=== PATIENT | male | born 1965 | race Caucasian/White ===

== ENCOUNTER 2022-04-28 00:24 | Emergency (ER) | payer MEDICAID, SELFPAY ==
[2022-04-28 00:49] VITALS: BP 146/95; PULSE 80; RESP 18; TEMP 36.6; O2SAT 97
--- NOTE | 2022-04-28 00:49 | W.ED.GENADLT ---
HPI - General Adult General: Chief complaint: Skin/Abscess/Foreign Body Stated complaint: INFECTED SORES Time Seen by Provider: 04/28/22 00:27 Source: patient and EMS Mode of arrival: EMS Limitations: no limitations History of Present Illness: 56-year-old male who states that 2 months ago he is having cough and congestion he states that he had taken a Z-Lalito and steroids with little help and then states he started to smoke meth which actually helped his cough. He states he has been using some meth and he is developed some sores. He states that he has sores on his left arm and he has a large wound to his left lower leg that appears to be an abscess that been draining. He states his cough improved he denies any fevers but he is concerned that he has gotten infections to his skin. Denies any worsening improving factors is not seeing anyone for this. Associated symptoms: Deny chest pain, dyspnea, headache(s), nausea, rash or vomiting Review of Systems Const: Denies: fever(s), chills, body aches or change in appetite Eyes: Denies: blurry vision or eye discomfort ENMT: Denies: throat pain or dental pain Card: Denies: chest pain Resp: Denies: dyspnea GI: Denies: abdominal pain, nausea, vomiting or diarrhea : Denies: dysuria Musc: Denies: neck pain or back pain Skin/Breast: Reports: sores; Denies: rash Neuro: Denies: headache(s) Psych: Denies: depression Segundo/Lymph: Denies: easy bruising All/Imm: Denies: urticaria PFS ED PFSH: Medical History (Updated 04/28/22 @ 01:27 by Brittni Capone MD) No pertinent past medical history Social History (Updated 04/28/22 @ 00:50 by Brittni Capone MD) Substance/Drug Use: current Physical Exam Const: COMMON NORMALS: no acute distress, patient oriented x3 and healthy appearing HENMT: COMMON NORMALS: normocephalic and atraumatic HEAD & SCALP: normocephalic and atraumatic Eye: COMMON NORMALS: Equal, round and reactive pupils present and EOMs intact bilaterally PUPIL: Yes Equal, round and reactive pupils present Neck/C-Spine: COMMON NORMALS: full ROM and supple Chest: COMMONS NORMALS: normal inspection of the chest and normal palpation of entire chest wall Resp: COMMON NORMALS: normal respiratory effort, No retractions, No use of accessory muscles and clear to auscultation bilaterally AUSCULTATION: clear to auscultation bilaterally Cardio: COMMON NORMALS: regular rate, regular rhythm and No murmurs present (Cardio) RATE: regular rate RHYTHM: regular rhythm GI: COMMON NORMALS: Normal to inspection, nondistended, normoactive bowel sounds present, Soft to palpation, non-tender and no masses PALPATION: Yes Soft to palpation Extremity: COMMON NORMALS: full ROM Neuro: COMMON NORMALS: patient oriented x3, moves all extremities and no focal motor deficits Psych: COMMON NORMALS: mental status grossly normal, Normal thought process present and cooperative THOUGHT PROCESS: Normal thought process present Skin: NARRATIVE SKIN EXAM: Multiple small open sores no signs of severe cellulitis or drainable abscesses he does have an abscess to his left lower leg and is roughly 3 cm and fluctuant. Patient has a 1 cm abscess to his left upper thigh and to his right shoulder as well that are fluctuant Procedures Abscess I/D Site: other (left lower leg, left upper leg and right shoulder) Local Anesthetic: lidocaine 1% Amount of anesthesia used (mL): 20 Technique: incised with #11 blade Packing used?: none Course Vital Signs: Vital signs: Vital Signs Temperature 97.9 F 04/28/22 00:49 Pulse Rate 80 04/28/22 00:49 Respiratory Rate 18 04/28/22 00:49 Blood Pressure 146/95 04/28/22 00:49 Pulse Oximetry 97 04/28/22 00:49 MDM - General Adult Medical Decision Making Patient presents here with multiple abscesses 3 that I did incise and drain we will place him on Bactrim he is well-appearing here he stable for discharge he is to follow-up with PCP and return if worsening. Discharge Plan Discharge Patient Disposition: Home Clinical Impression: Abscess Prescriptions: New Bactrim DS 800-160 mg tablet 1 tab PO BID 10 Days Qty: 20 0RF Naprosyn 500 mg tablet 500 mg PO BID PRN (Reason: pain) Qty: 20 0RF No Action azithromycin 250 mg tablet See Rx Instructions PO .COMPLEX Qty: 6 0RF Rx Instructions: take 500 mg today (day 1), then 250 mg for 4 days (days 2-5) PO methylprednisolone [Medrol (Lalito)] 4 mg tablets,dose pack See Rx Instructions PO PER PKG DIR Qty: 21 0RF Rx Instructions: PO PER PKG DIR Discharge Orders: Discharge ED (Routine); Ordered 04/28/22 Ordered By: Brittni Capone Discharge Diet: Advance as tolerated Discharge Activity: Resume usual activity Patient Instructions: Abscess (ED) Coding Level of Care Code ED Child Care Specialist for Chg Fwd Exam Comprehensive
[2022-04-28] MEDS: HYDROcodone-acetaminophen 5-325 mg Tablet 1 TAB PO (01:29)
[2022-04-28] MEDS: sulfamethoxazole-trimeth DS 160-800 mg Tablet 1 TAB PO (01:29)
[2022-04-28 01:41] VITALS: BP 146/95; PULSE 80; RESP 18; TEMP 36.6; O2SAT 97
== END 2022-04-28 01:42 | disposition home or self-care (01) ==
PROVIDERS: Emergency Provider Emergency Medicine
DX: L02.416 Cutaneous abscess of left lower limb (principal); L02.413 Cutaneous abscess of right upper limb
CPT/HCPCS: 10061; 99283

== ENCOUNTER 2022-06-22 17:47 | Inpatient (IN) | payer MEDICAID, SELFPAY ==
[2022-06-22] VITALS (9 sets, daily range): BP systolic 98–130; BP diastolic 70–90; PULSE 88–112; RESP 16–18; TEMP 36.6–36.7; O2SAT 92–100; BMI 16.9
--- NOTE | 2022-06-22 17:57 | XRR_ITS ---
PROCEDURE INFORMATION: Exam: XR Chest Exam date and time: 06/22/2022 6:03 PM Age: 56 years old Clinical indication: Other: AMS TECHNIQUE: Imaging protocol: Radiologic exam of the chest. Views: 1 view. COMPARISON: No relevant prior studies available. FINDINGS: Lungs: Small density in the right mid lung is most likely in the right upper lobe, abutting the minor fissure. The lungs are otherwise clear. Pleural spaces: Unremarkable. No pleural effusion. No pneumothorax. Heart/Mediastinum: Unremarkable. No cardiomegaly. Bones/joints: Unremarkable. XR/XR chest 1V portable [id number] IMPRESSION: Small focus of atelectasis or possible pneumonia in the right mid lung.
--- NOTE | 2022-06-22 17:57 | CTR_ITS ---
PROCEDURE INFORMATION: Exam: CT Head Without Contrast Exam date and time: 06/22/2022 6:08 PM Age: 56 years old Clinical indication: Altered mental status/memory loss; Patient HX: AMS. Patient non verbal except when grunting. Unable to obtain further history. TECHNIQUE: Imaging protocol: Computed tomography of the head without contrast. Radiation optimization: All CT scans at this facility use at least one of these dose optimization techniques: automated exposure control; mA and/or kV adjustment per patient size (includes targeted exams where dose is matched to clinical indication); or iterative reconstruction. COMPARISON: No relevant prior studies available. RADIATION DOSE METRICS: Total DLP (mGy-cm): 647.88 FINDINGS: Brain: Mild cortical volume loss. Mild hypodensities in supratentorial periventricular and subcortical white matter, consistent with microangiopathy. No intracranial hemorrhage. Cerebral ventricles: No ventriculomegaly. Paranasal sinuses: Visualized sinuses are unremarkable. No fluid levels. Mastoid air cells: Small right mastoid effusion. The left mastoid is clear. Bones/joints: Unremarkable. No acute fracture. Soft tissues: Unremarkable. Vasculature: No hyperdense artery. CT/CT head wo con* [id number] IMPRESSION: No acute intracranial abnormality.
--- NOTE | 2022-06-22 17:58 | ECG_ITS ---
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 Measurements Intervals [place] Rate: 90 P: 78 [place]: 153 QRS: 84 QRSD: 98 T: 59 QT: 324 QTc: 397 Interpretive Statements SINUS RHYTHM RIGHT ATRIAL ENLARGEMENT [0.3mV P-WAVE] No previous ECG available for comparison Electronically Signed On 06-23-2022 17:35:10 CDT by Yahaira Lobato M.D. [id number]
--- NOTE | 2022-06-22 18:10 | CTR_ITS ---
PROCEDURE INFORMATION: Exam: CT Chest Without Contrast; Diagnostic Exam date and time: 06/22/2022 6:12 PM Age: 56 years old Clinical indication: Patient HX: AMS. Abnormal cxr. Patient non verbal except when grunting. Unable to obtain further history. ; Additional info: Mass TECHNIQUE: Imaging protocol: Diagnostic computed tomography of the chest without contrast. Radiation optimization: All CT scans at this facility use at least one of these dose optimization techniques: automated exposure control; mA and/or kV adjustment per patient size (includes targeted exams where dose is matched to clinical indication); or iterative reconstruction. COMPARISON: CR (CHEST, ) 06/22/2022 6:03 PM RADIATION DOSE METRICS: Total DLP (mGy-cm): 678.23 FINDINGS: Lungs: Severe centrilobular emphysema. 2.8 cm irregular nodule in the superior segment of the right lower lobe. Multiple adjacent nodules in the superomedial right lower lobe measuring 2.0 cm, 0.9 cm, 1.2 cm, and 0.8 cm. 0.8 cm cavitary nodule in the right lower lobe. 2.8 x 3.0 x 7.3 cm oval masslike consolidation in the anterior right lower lobe, abutting the major fissure, extending from the peripheral pleura to the hilum. Mild patchy peripheral ground-glass opacities in the left lower lobe and lingula. Pleural spaces: No pleural effusion. No pneumothorax. Heart: No coronary artery calcifications. The heart size is normal. Lymph nodes: Unremarkable. No enlarged lymph nodes. Vasculature: Unremarkable. No aortic aneurysm. Bones/joints: Unremarkable. No acute fracture. Soft tissues: Unremarkable. PET/CT, or tissue sampling.(Reference: Nakul) 2. Masslike subpleural consolidation in the anterior right lower lobe with extension to the hilum. This is suspicious for an underlying neoplastic process, given the other findings. 3. Ground-glass opacities in the left lung are suspicious for pneumonia. References: Nakul Georges et al. Guidelines for Management of Incidental Pulmonary Nodules Detected on CT Images: From the Fleischner Society 2017. Radiology. 2017;284(1):228-243. PROCEDURE INFORMATION: Exam: CT Abdomen And Pelvis Without Contrast Exam date and time: 06/22/2022 6:12 PM Age: 56 years old Clinical indication: Patient HX: AMS. Abnormal cxr. Patient non verbal except when grunting. Unable to obtain further history. ; Additional info: Mass TECHNIQUE: Imaging protocol: Computed tomography of the abdomen and pelvis without contrast. Radiation optimization: All CT scans at this facility use at least one of these dose optimization techniques: automated exposure control; mA and/or kV adjustment per patient size (includes targeted exams where dose is matched to clinical indication); or iterative reconstruction. COMPARISON: CR (CHEST, ) 06/22/2022 6:03 PM RADIATION DOSE METRICS: Total DLP (mGy-cm): 678.23 FINDINGS: Liver: Normal. No mass. Gallbladder and bile ducts: Normal. No calcified stones. No ductal dilation. Pancreas: Normal. No ductal dilation. Spleen: Normal. No splenomegaly. Adrenal glands: Normal. No mass. Kidneys and ureters: Mild bilateral hydronephrosis with columning of the ureters to the urinary bladder. No visible ureteral calculus. Multiple small bilateral nonobstructing renal calculi measuring up to 3 mm. Stomach and bowel: Moderate stool in the proximal and transverse colon. The descending and distal colon are decompressed with scattered gas. Stool in the rectum. No small bowel obstruction. Fluid-filled stomach. No wall thickening. Appendix: No evidence of appendicitis. Intraperitoneal space: Unremarkable. No free air. No significant fluid collection. Retroperitoneal space: Multiple surgical clips in the retroperitoneum and pelvis. Vasculature: Arterial calcifications. No aneurysm. Lymph nodes: Unremarkable. No enlarged lymph nodes. Urinary bladder: Distended urinary bladder measuring 17.0 cm in length. Large 8.6 cm lamellated calcified stone in the inferior urinary bladder. Multiple additional smaller urinary bladder stones inferiorly, measuring up to 2.7 cm. No visible bladder wall thickening. Reproductive: The prostate is not visualized and may be absent or small in size. Bones/joints: Unremarkable. No acute fracture. Soft tissues: Unremarkable. CT/[place] [id number] IMPRESSION: 1. Multiple suspicious irregular nodules in the right lower lobe, the largest measuring 2.8 cm. Highly suspicious nodule(s). Consider non-emergent IMPRESSION: 1. Multiple urinary bladder calculi, the largest measuring 8.6 cm. 2. Distended urinary bladder with no visible wall thickening. This likely represents chronic urinary bladder outlet obstruction. 3. Mild bilateral hydronephrosis is most likely related to the distended urinary bladder. 4. Small bilateral renal calculi.
--- NOTE | 2022-06-22 18:10 | W.ED.AMS ---
HPI - Altered Mental Status General: Chief Complaint: Altered Mental Status Stated Complaint: AMS/ PINPOINT PUPILS Time Seen by Provider: 06/22/22 17:57 Source: EMS Mode of arrival: EMS Limitations: altered mental status History of Present Illness: 56-year-old male who is here with EMS for altered mental status. Per EMS patient's been altered no history available from him and states that family at scene was not very good historians either they told him that he had been altered for a month which being much worse today unknown if patient has a history of drug abuse EMS states when they arrived his pupils were pinpoint and gave him Narcan he became more responsive this patient still severely altered not able to make any words or follow any commands he is very cachectic appearing. No known fever. Review of Systems General: Reports: ROS unobtainable due to mental status PFSH ED PFSH: Medical History (Updated 06/22/22 @ 22:38 by Brittni Capone MD) Bladder cancer 2017 CKD (chronic kidney disease) Falls Macrocytosis Metabolic acidemia No pertinent past medical history SBO (small bowel obstruction) Surgical History (Updated 06/22/22 @ 22:35 by Haroon Peterson MD) H/O partial cystectomy Social History (Updated 06/22/22 @ 18:11 by Brittni Capone MD) Substance/Drug Use: unknown Physical Exam Const: COMMON NORMALS: negative for patient oriented x3 GENERAL APPEARANCE: ill appearing and frail appearing HENMT: COMMON NORMALS: normocephalic and atraumatic HEAD & SCALP: normocephalic and atraumatic OTHER: oral mucous dry Eye: COMMON NORMALS: Equal, round and reactive pupils present and conjunctivae normal CONJUNCTIVA: Yes conjunctivae normal PUPIL: Yes Equal, round and reactive pupils present Neck/C-Spine: COMMON NORMALS: full ROM and supple Chest: COMMONS NORMALS: normal inspection of the chest and normal palpation of entire chest wall Resp: COMMON NORMALS: normal respiratory effort and clear to auscultation bilaterally AUSCULTATION: clear to auscultation bilaterally Cardio: COMMON NORMALS: regular rate and regular rhythm RATE: regular rate RHYTHM: regular rhythm GI: COMMON NORMALS: Normal to inspection, nondistended, normoactive bowel sounds present, Soft to palpation and non-tender PALPATION: Yes Soft to palpation Back/Pelvis: COMMON NORMALS: thoracic and lumbar spine normal to inspection Extremity: COMMON NORMALS: normal to inspection Neuro: COMMON NORMALS: negative for patient oriented x3 Psych: COMMON NORMALS: negative for mental status grossly normal Skin: COMMON NORMALS: no rashes or lesions noted GENERAL SKIN EXAM: no rashes or lesions noted Course Vital Signs: Vital signs: Vital Signs Temperature 97.9 F 06/22/22 18:06 Pulse Rate 112 H 06/22/22 18:06 Respiratory Rate 16 06/22/22 18:06 Blood Pressure 130/89 06/22/22 18:06 Pulse Oximetry 99 06/22/22 18:06 Oxygen Delivery Me thod 06/22/22 18:06 MDM - Altered Mental Status Medical Decision Making Patient presents with altered mental status he is found to be acidotic with acute kidney injury he appears to have a lung mass along with a pneumonia. Lactate here is minimally elevated patient started on IV fluids along with IV antibiotics he has became a little more awake but still is quite altered. Spoke to hospital admit to ICU. Lab Data : 06/22/22 18:45 06/22/22 18:45 Radiology Impressions Chest X-Ray 06/22/22 17:57 IMPRESSION: Small focus of atelectasis or possible pneumonia in the right mid lung. Head CT 06/22/22 17:57 IMPRESSION: No acute intracranial abnormality. Chest/Abdomen/Pelvis CT 06/22/22 18:10 IMPRESSION: 1. Multiple suspicious irregular nodules in the right lower lobe, the largest measuring 2.8 cm. Highly suspicious nodule(s). Consider non-emergent IMPRESSION: 1. Multiple urinary bladder calculi, the largest measuring 8.6 cm. 2. Distended urinary bladder with no visible wall thickening. This likely represents chronic urinary bladder outlet obstruction. 3. Mild bilateral hydronephrosis is most likely related to the distended urinary bladder. 4. Small bilateral renal calculi. Laboratory Results WBC 41.6 10^3/uL (4.0-10.0) H* 06/22/22 18:45 RBC 5.22 10^6/uL (4.1-5.3) 06/22/22 18:45 Hgb 17.1 g/dL (11.7-16.6) H 06/22/22 18:45 Hct 53.9 % (42.0-52.0) H 06/22/22 18:45 MCV 103.3 fl (80-94) H 06/22/22 18:45 MCH 32.8 pg (28.0-34.0) 06/22/22 18:45 MCHC 31.7 g/dL (30.0-36.0) 06/22/22 18:45 RDW 14.2 % (12.1-15.1) 06/22/22 18:45 Plt Count 452 10^3/cmm (130-400) H 06/22/22 18:45 MPV 10.1 fL (7.4-10.4) 06/22/22 18:45 Neut % (Auto) 89.5 % 06/22/22 18:45 Lymph % (Auto) 2.5 % 06/22/22 18:45 Navarro % (Auto) 5.0 % 06/22/22 18:45 Eos % (Auto) 0.0 % 06/22/22 18:45 Baso % (Auto) 0.3 % 06/22/22 18:45 Neut # (Auto) 37.29 10^3/uL (1.8-7.7) H 06/22/22 18:45 Lymph # (Auto) 1.0 10^3/uL (0.8-4.8) 06/22/22 18:45 Navarro # (Auto) 2.1 10^3/uL (0.2-0.9) H 06/22/22 18:45 Eos # (Auto) 0.0 10^3/uL (0.0-0.8) 06/22/22 18:45 Baso # (Auto) 0.1 10^3/uL (0.0-0.1) 06/22/22 18:45 Nucleated RBC % (auto) 0 % 06/22/22 18:45 Nucleated RBCs # 0.0 /100WBC 06/22/22 18:45 PT 15.30 SECONDS (12.1-14.9) H 06/22/22 18:45 INR 1.17 (0.8-1.2) 06/22/22 18:45 Specimen Type Arterial 06/22/22 18:52 Sample Site Radial, left 06/22/22 18:52 ABG pH 7.01 (7.35-7.45) L* 06/22/22 18:52 ABG pCO2 11.4 mmHg (35-45) L* 06/22/22 18:52 ABG pO2 127.0 mmHg (80.0-100.0) H 06/22/22 18:52 ABG HCO3 2.9 mmol/L (22-26) L 06/22/22 18:52 ABG Base Excess -26.2 mmol/L (-2.0-2.0) L 06/22/22 18:52 Harvinder Test Pos 06/22/22 18:52 Hematocrit 51.4 % (42-52) 06/22/22 18:52 O2 Delivery Device Room air 06/22/22 18:52 FiO2 21.0 % 06/22/22 18:52 Technical Support Intern ID Eds 06/22/22 18:52 Sodium 137 mmol/L (136-145) 06/22/22 18:45 Potassium 4.6 mmol/L (3.5-5.1) 06/22/22 18:45 Chloride 119 mmol/L (98-107) H 06/22/22 18:45 Carbon Dioxide 7 mmol/L (22-29) L* 06/22/22 18:45 Anion Gap 15.6 (5-19) 06/22/22 18:45 BUN 146 mg/dL (6-20) H* 06/22/22 18:45 Creatinine 6.6 mg/dL (0.7-1.2) H* 06/22/22 18:45 GFR Calculation 8.8 mL/min (90-130) L 06/22/22 18:45 Glucose 110 mg/dL (65-115) 06/22/22 18:45 POC Glucose 109 mg/dL (70-110) 06/22/22 18:35 Calculated Osmolality 332 mOsm/kg (285-295) H 06/22/22 18:45 Lactate 2.9 mmol/L (0.5-2.2) H 06/22/22 18:45 Calcium 11.3 mg/dL (8.5-10.5) H 06/22/22 18:45 Magnesium 3.1 mg/dL (1.7-2.3) H 06/22/22 18:45 Total Bilirubin 0.3 mg/dL (0.15-1.2) 06/22/22 18:45 AST 11 U/L (0-40) 06/22/22 18:45 ALT 18 U/L (0-41) 06/22/22 18:45 Alkaline Phosphatase 168 U/L (40-130) H 06/22/22 18:45 Creatine Kinase 59 U/L (39-308) 06/22/22 18:45 Troponin T Baseline 12 ng/L (0-15) 06/22/22 18:45 Troponin T 120 Minute 12.68 ng/L (0-15) 06/22/22 21:10 Delta Troponin T 0.68 ABS# (0-10) 06/22/22 21:10 Total Protein 8.6 g/dL (6.6-8.7) 06/22/22 18:45 Albumin 4.2 g/dL (3.5-5.2) 06/22/22 18:45 Globulin 4.4 g/dL (1.3-4.6) 06/22/22 18:45 Lipase 185 U/L (13-60) H 06/22/22 18:45 TSH 4.09 uIU/mL (0.27-4.20) 06/22/22 18:45 Ethyl Alcohol < 10 mg/dL (0-10) 06/22/22 18:45 Critical Care Time Critical Care Time: Critical Care Time: Yes Total Critical Care Time: 45 Attestation: The high probability of a clinically significant, sudden or life threatening deterioration of the patient's pulm system(s) required my full and direct attention, intervention and personal management. The critical care time is as shown. 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
[2022-06-22 18:38] LABS: Glucose Point of Care 109 mg/dL (70-110)
--- NOTE | 2022-06-22 18:38 | PC.PHAR ---
PT UNABLE TO VERIFY MEDICATION- CALLED [facility]TS CONTACTS COULD NOT CONTACT THEM- CALLED [facility] PHARMACY STATES THEY DO NOT FILL ANY MAINTENANCE MEDICATIONS FOR THIS PT- FILLED ANTIBIOTICS LAST IN APRIL
[2022-06-22] MEDS: sodium chloride 0.9% 1,000 ML 999 ML IV ×3 (18:52→23:09)
[2022-06-22 19:03] LABS: ABG PH Result 7.01 (7.35-7.45); Arterial Blood Gas Hematocrit 51.4 % (42-52); Base Excess ABG -26.2 mmol/L (-2.0-2.0); Blood Gas Allen Test Pos; Blood Gas Sample Site Radial, left; Blood Gas Sample Type Arterial; HCO3 ABG 2.9 mmol/L (22-26); Oxygen Device ROOM AIR
[2022-06-22 19:04] LABS: ABG PCO2 11.4 mmHg (35-45)
[2022-06-22 19:08] LABS: Basophils # 0.1 10^3/uL (0.0-0.1); Basophils % 0.3 %; Hematocrit 53.9 % (42.0-52.0); Hemoglobin 17.1 g/dL (11.7-16.6); Lymphocytes % 2.5 %; Mean Corpuscular HGB Conc 31.7 g/dL (30.0-36.0); Mean Corpuscular Hemoglobin 32.8 pg (28.0-34.0); Mean Corpuscular Volume 103.3 fl (80-94); Mean Platelet Volume 10.1 fL (7.4-10.4); Monocytes # 2.1 10^3/uL (0.2-0.9); Neutrophils # 37.29 10^3/uL (1.8-7.7); Neutrophils % 89.5 %; Nucleated Red Blood Cells % 0 %; Platelet Count 452 10^3/cmm (130-400); Red Blood Count 5.22 10^6/uL (4.1-5.3); Red Cell Distribution Width 14.2 % (12.1-15.1)
[2022-06-22 19:19] LABS: INR 1.17 (0.8-1.2); White Blood Count 41.6 10^3/uL (4.0-10.0)
[2022-06-22 19:44] LABS: Lactate (Lactic Acid level) 2.9 mmol/L (0.5-2.2)
[2022-06-22 19:47] LABS: Alanine Aminotransferase 18 U/L (0-41); Albumin Level 4.2 g/dL (3.5-5.2); Creatine Phosphokinase 59 U/L (39-308); Globulin 4.4 g/dL (1.3-4.6); Glucose 110 mg/dL (65-115); Sodium 137 mmol/L (136-145); Total Bilirubin 0.3 mg/dL (0.15-1.2); Total Protein 8.6 g/dL (6.6-8.7)
--- NOTE | 2022-06-22 19:58 | ECG_ITS ---
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 Measurements Intervals [place] Rate: 90 P: 78 [place]: 160 QRS: 82 QRSD: 94 T: 74 QT: 335 QTc: 410 Interpretive Statements SINUS RHYTHM RIGHT ATRIAL ENLARGEMENT [0.3mV P-WAVE] Compared to ECG 06/22/2022 18:41:00 No significant changes Electronically Signed On 06-23-2022 17:36:41 CDT by Yahaira Lobato M.D. [id number]
[2022-06-22 20:11] LABS: Troponin(5th) Baseline 12 ng/L (0-15)
[2022-06-22 20:21] LABS: Aspartate Amino Transferase 11 U/L (0-40); Thyroid Stimulating Hormone 4.09 uIU/mL (0.27-4.20)
[2022-06-22] MEDS: cefTRIAXone 1,000 MG in sodium chloride 0.9% (plus) 50 ML 100 MG IV (20:22)
[2022-06-22] MEDS: piperacillin-tazobactam 3.375 GM in sodium chloride 0.9% (plus) 50 ML IV ×2 (20:23→23:18)
[2022-06-22 20:28] LABS: Chloride 119 mmol/L (98-107); Potassium 4.6 mmol/L (3.5-5.1)
[2022-06-22 20:29] LABS: Anion Gap 15.6 (5-19); Calcium 11.3 mg/dL (8.5-10.5); Glomerular Filtration Rate 8.8 mL/min (90-130); Osmolality Calculated 332 mOsm/kg (285-295)
[2022-06-22 20:31] LABS: Alcohol Level < 10 mg/dL (0-10); Alkaline Phosphatase 168 U/L (40-130); Lipase 185 U/L (13-60)
[2022-06-22 20:33] LABS: Blood Urea Nitrogen 146 mg/dL (6-20); Carbon Dioxide 7 mmol/L (22-29)
[2022-06-22 21:07] LABS: Magnesium 3.1 mg/dL (1.7-2.3)
[2022-06-22 21:42] LABS: Troponin 5 2HR 12.68 ng/L (0-15)
[2022-06-22 21:56] LABS: Troponin 5 2HR Delta 0.68 ABS# (0-10)
[2022-06-22] MEDS: azithromycin 500 MG in sodium chloride 0.9% 250 ML 250 MG IV (21:59)
[2022-06-22] MEDS: vancomycin 1,000 MG in sodium chloride 0.9% 250 ML 250 MG IV (22:18)
--- NOTE | 2022-06-22 22:26 | PM.HP ---
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 Patient is a poor historian, as per the family for last 1 month he has been struggling to pass urine on his own he takes a lot of time to pass urine, he has been getting lethargic and fatigued he recently had MRSA skin infection and did not finish his antibiotic course. Patient is not able to give me any details, he is confused, oriented to himself, agitated I called his family to come in the hospital and had [id number] discussion Delay only 1 mile away I spoke with his mother and brother. Amos lives very well with the brother for last 1 month he has been very fatigued and lethargic which has gotten worse in last 7 days, he has been confused and acting a little weird. 2 days ago he left Tea on the stove and it almost burned their kitchen, when brother confronted him he did not give any straight answers, he initially thought he is just joking around but later he realized that he is confused and not making any sense they have not noticed any fever. Brother is stating that Amos struggles to pee and spends a lot of time in the bathroom. In the ER he has been diagnosed with normal anion gap acidosis likely related to ileal conduit diversion I have started him on bicarb drip Admit to ICU Lung mass consideration given to malignancy which was discussed with the family I will start him on broad-spectrum antibiotics I do not have his weight at this point we will give him 2 L normal saline bolus He has received antibiotics, Had a family discussion in the ICU Mother is at the bedside They were not expecting sepsis, multiorgan failure, severe acidosis pneumonia and lung cancer Family is very emotional at this point, also care discussed with the patient in case of respiratory or cardiac arrest, he is full code However I did try to explain guarded prognosis Review of Systems Const: Reports: chills, body aches, change in weight, fatigue, malaise and night sweats Eyes: Denies: change in vision ENMT: Denies: throat pain Card: Reports: dyspnea on exertion and orthopnea; Denies: chest pain Resp: Reports: dyspnea GI: Reports: nausea : Reports: difficulty urinating, urinary urgency, urinary hesitancy, urinary dribbling, difficulty starting urination, change in urine stream, nocturia, oliguria and urinary incontinence; Denies: flank pain Musc: Reports: back pain and extremity pain Skin/Breast: Reports: lesions Neuro: Reports: headache(s) Psych: Reports: anxiety Endo: Denies: polyuria Segundo/Lymph: Denies: easy bruising All/Imm: Denies: urticaria Medications/Allergies Home Medications Medication Instructions Recorded Confirmed Last Taken Type No Known Home Medications 06/22/22 06/22/22 Unknown History Allergies Allergy/AdvReac Type Severity Reaction Status Date / Time acetaminophen [From Vicodin] Allergy Mild ADR-Nausea Verified 06/22/22 18:37 cefaclor [From Ceclor] Allergy Mild ADR-Nausea Verified 06/22/22 18:37 hydrocodone [From Vicodin] Allergy Mild ADR-Nausea Verified 06/22/22 18:37 PFSH Acute PFSH: Medical History Bladder cancer 2017 CKD (chronic kidney disease) Falls Macrocytosis Metabolic acidemia No pertinent past medical history SBO (small bowel obstruction) Surgical History (Updated 06/22/22 @ 22:46 by Haroon Peterson MD) H/O partial cystectomy S/P ileal conduit Family History (Updated 06/22/22 @ 22:46 by Haroon Peterson MD) Other Cancer Social History (Updated 06/22/22 @ 22:47 by Haroon Peterson MD) Smoking and tobacco status: current every day smoker cigarettes Alcohol intake: current Alcohol type: beer Alcohol use comment: 2/day Substance/Drug Use: former Vitals/I&O/Wt Last Vital Signs Temp 97.9 F 06/22/22 18:06 Pulse 112 H 06/22/22 18:06 Resp 16 06/22/22 18:06 BP 130/89 06/22/22 18:06 Pulse Ox 99 06/22/22 18:06 O2 Del Method 06/22/22 18:06 06/22/22 06/22/22 06/22/22 06:59 14:59 22:59 Intake Total 1116.65 / 1116.65 Balance 1116.65 / 1116.65 Physical Exam Narrative: Patient is oriented to himself Agitated Tremors positive Confused Moving his extremities Skin mottling of lower extremity Sensory neuropathy, legs are tender to touch Painful tender lesion all over his extremities Cachectic, malnourished Dry skin Dry mouth Currently on 2 L S1, S2 sinus tachycardia Abdomen soft Flat Data : 06/22/22 18:45 06/22/22 18:45 Micro: Microbiology 06/22/22 18:31 Blood Culture - Preliminary Blood SPECIMEN COLLECTED A&P Assessment and plan (1) Constipation: Status: Acute (2) Metabolic acidemia: Status: Acute (3) Drinks beer: Status: Acute (4) Lung nodule: Status: Acute (5) Malnourished: Status: Acute (6) Lung mass: Status: Acute (7) Pneumonia: Status: Acute (8) Acute kidney injury: Status: Acute (9) Altered mental status: Status: Acute Plan Sepsis Bacteria met with tachypnea, tachycardia, leukocytosis and high lactic acid with endorgan damage I do not have his weight listed in the chart I will give him 2 L normal saline bolus, blood cultures have been taken he has received antibiotics, repeat lactic acid Community-acquired pneumonia Lung mass Irregular nodular lesions likely cancer related He is a smoker I will start him on vancomycin and Zosyn renally dosed Request MRSA PCR Legionella and bacterial antigen Currently he is on 2 L ACute hypoxia related to community-acquired pneumonia Continue 2 L Patient is hyperventilating to compensate for metabolic acidosis Might need BiPAP overnight to decrease work of breathing Skin mottling, Clinically looks dehydrated No active signs of shock Check D-dimer Carries history of hepatitis C I do believe his tender palpable lesions are related to chronic hepatitis C Bladder distention, place Yap catheter Normal anion gap metabolic acidosis explained by the ileal diversion I will start him on bicarb drip Check urine pH, urine electrolytes to check urinary anion gap Hypercalcemia I do believe patient is hemoconcentrated Evident on high platelet count and hemoglobin Continue IV fluids for now Recheck calcium in the morning Calciumemia of malignancy? Acute on chronic kidney disease Creatinine 6.6 like related to dehydration and sepsis Hydronephrosis Place Yap catheter recheck BMP in the morning Alcohol abuse: Add thiamine, folic acid and low-dose phenobarbital 130 mg every 2 hours for as needed use if CIWA above 12 If CIWA stays consistently above 12 in next 48 hours phenobarbital dose can be increased to 260 mg Normally phenobarbital dose is 15 mg/kg/day to avoid respiratory depression Request records As per the family he was reluctant to come to the hospital because he never liked this facility Patient is full code Start diet once he is more awake and alert At this point he will stay n.p.o. 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
[2022-06-22 23:08] LABS: Amphetamines Screen Urine Negative (Negative); Barbiturates Screen Urine Negative (Negative); Benzodiazepines Screen Urine Negative (Negative); Cocaine Screen Urine Negative (Negative); Opiate Screen Urine Negative (Negative); PCP Screen Urine Negative (Negative); THC Screen Urine Negative (Negative)
[2022-06-22 23:27] LABS: Procalcitonin 0.25 ng/mL (0-0.5)
[2022-06-22] MEDS: sodium bicarbonate 150 MEQ in dextrose 5% 1,000 ML 100 MEQ IV (23:37)
[2022-06-22 23:41] LABS: Add Urine Microscopic? YES; Bilirubin Urine Neg (Negative); Blood Urine 3+ (Negative); Glucose Urine UA Norm (Normal); Ketones Urine Negative (Negative); Leukocyte Esterase Urine 2+ (Negative); Nitrate Urine Negative (Negative); Protein Urine 2+ (Negative); Urine Appearance Clear (CLEAR); Urine Color Yellow (Yellow); Urobilinogen Urine Norm (Negative); pH Urine 6.5 (5-7)
[2022-06-22 23:42] LABS: Bacteria Urine 2+ /hpf; RBC Urine 25-40 /hpf (0-2); Squamous Epithelial Cell Urine 0-4 /hpf (0-5); WBC Urine 40-55 /hpf (0-5)
[2022-06-22 23:43] LABS: Add Urine Culture? Yes; Hyaline Casts Urine 0-4 /lpf; Oval Fat Bodies Urine 1+ /hpf
--- NOTE | 2022-06-22 23:58 | ECG_ITS ---
[facility] Test Date: 2022-06-23 Pat Name: Amos Schaefer Department: Room: [facility] Gender: Male Lead Clinical Research Coordinator: : 1965 Requested By: Brittni Capone Order Number: [id number] El MD: Selwyn Roland M.D. Measurements Intervals [place] Rate: 91 P: 80 DC: 168 QRS: 84 QRSD: 94 T: 136 QT: 331 QTc: 408 Interpretive Statements SINUS RHYTHM POSSIBLE RIGHT ATRIAL ENLARGEMENT [0.25mV P-WAVE] NONSPECIFIC T-WAVE ABNORMALITY Compared to ECG 06/22/2022 21:31:52 T-wave abnormality now present Electronically Signed On 06-23-2022 19:54:55 CDT by Selwyn Roland M.D. [id number]
[2022-06-23] VITALS (57 sets, daily range): BP systolic 91–133; BP diastolic 48–97; PULSE 48–99; RESP 14–23; TEMP 36.5–36.8; O2SAT 92–100
[2022-06-23 00:13] LABS: Potassium, Radom Urine 40 mmol/L; Urine Creatinine 93 mg/dL (39-259); Urine Random Chloride 26 mmol/L; Urine Random Sodium 48 mmol/L
[2022-06-23 00:18] LABS: Creatinine Urine, Random 93 mg/dL (39-259)
[2022-06-23] MEDS: sodium chloride 0.9% 1,000 ML 999 ML IV (00:19)
[2022-06-23 00:23] LABS: NT Pro B Type Natriuretic Pept 399 pg/mL (0-125)
[2022-06-23 00:30] LABS: Microalbum Creatinine Ratio Ur 527 mg/dL (0-20); Microalbumin Random Urine 49 ug/dL (0-20)
[2022-06-23] MEDS: PHENobarbital 130 mg/mL SDV 1 mL IV ×2 (00:31→05:26)
--- NOTE | 2022-06-23 00:36 | PC.PHAR ---
Pharmacokinetic dosing service Date: 06/23/22 Time: 29 Objective: Patient: Amos Schaefer Floor: ICU-9 Age: 56 yo Serum creatinine: 6.6 mg/dL Height: 65.0 Inches Weight (kg): 45.994 Diagnosis: Relevant medical/social history: Cultures and sensitivities: Other labs: Assessment: IBW (kg): 61.50 Dosing wt(kg): 45.994 Estimated Creatinine clearance (ml/min): 8.3 CRCL method: Cockcroft and Gault using ibw(default). Drug selected: Vancomycin Loading dose (mg): 0 Vd (liters): 41.4 (factor used: 0.9 L/kg) Toi (hr-1): 0.011 Half life (hrs): 63.01 Recommended dose: 750 mg Interval: 72 hrs Infusion time (hrs): 1.5 Predicted peak (mcg/mL): 32.8 Predicted trough (mcg/mL): 15.10 Total body weight is being used for vancomycin dosing. Renal function is stable [ ] /unstable [ ] Recommendations: Give Vancomycin 750 mg q 72 hrs with an expected Cpeak of 32.8 mcg/ml and an expected Ctrough of 15.10 mcg/ml Renal dosing of other antibiotics (review renal dosing of other medications and list guidelines here): Thank you for the consult, will continue to follow. Signature: Elidia Lyons [facility]
--- NOTE | 2022-06-23 00:53 | PC.NURSE ---
Medical History Patient presents with altered mental status and unable to give medical history. Mother at bedside, she states I don't know about that stuff. I did when he was a kid, but we have been at different times so I really don't know. Medical history, allergies, and medications regularly taken unable to be obtained.
[2022-06-23 01:43] LABS: Basophils # 0.1 10^3/uL (0.0-0.1); Basophils % 0.2 %; Hematocrit 38.3 % (42.0-52.0); Hemoglobin 12.2 g/dL (11.7-16.6); Lymphocytes # 0.7 10^3/uL (0.8-4.8); Lymphocytes % 2.4 %; Mean Corpuscular HGB Conc 31.9 g/dL (30.0-36.0); Mean Corpuscular Hemoglobin 32.9 pg (28.0-34.0); Mean Corpuscular Volume 103.2 fl (80-94); Monocytes # 1.3 10^3/uL (0.2-0.9); Monocytes % 4.3 %; Nucleated Red Blood Cells % 0 %; Platelet Count 310 10^3/cmm (130-400); Red Blood Count 3.71 10^6/uL (4.1-5.3)
[2022-06-23 01:59] LABS: Troponin 5 6HR 14.68 ng/L (0-15)
[2022-06-23 02:00] LABS: Lactate (Lactic Acid level) 0.5 mmol/L (0.5-2.2)
[2022-06-23 02:01] LABS: Alanine Aminotransferase 11 U/L (0-41); Albumin Level 2.6 g/dL (3.5-5.2); Alkaline Phosphatase 108 U/L (40-130); Anion Gap 12.6 (5-19); Aspartate Amino Transferase 12 U/L (0-40); C Reactive Protein 3.6 mg/L (0.0-4.9); Calcium 8.7 mg/dL (8.5-10.5); Chloride 133 mmol/L (98-107); Globulin 2.7 g/dL (1.3-4.6); Glomerular Filtration Rate 28.4 mL/min (90-130); Glucose 113 mg/dL (65-115); Magnesium 2.1 mg/dL (1.7-2.3); Phosphorus 3.1 mg/dL (2.5-4.5); Potassium 3.6 mmol/L (3.5-5.1); Sodium 145 mmol/L (136-145); Total Bilirubin 0.2 mg/dL (0.15-1.2); Total Protein 5.3 g/dL (6.6-8.7)
[2022-06-23 02:13] LABS: Osmolality Calculated 342 mOsm/kg (285-295)
[2022-06-23 02:17] LABS: Carbon Dioxide 3 mmol/L (22-29)
[2022-06-23 02:18] LABS: Blood Urea Nitrogen 128 mg/dL (6-20); White Blood Count 30.5 10^3/uL (4.0-10.0)
[2022-06-23 02:20] LABS: Troponin 5 6HR Delta 2.68 ng/L (0-12)
[2022-06-23 04:19] LABS: Ferritin 818 ng/mL (30-400)
[2022-06-23 04:35] LABS: Vitamin B12 656 pg/mL (232-1245)
[2022-06-23 05:28] LABS: Arterial Blood Gas Hematocrit 39.5 % (42-52); Base Excess ABG -22.6 mmol/L (-2.0-2.0); Blood Gas Allen Test Pos; Blood Gas Operator Identificat JB; Blood Gas Sample Site Radial, right; Blood Gas Sample Type Arterial; HCO3 ABG 4.2 mmol/L (22-26); Oxygen Device NC
[2022-06-23 05:29] LABS: ABG PCO2 12.5 mmHg (35-45); ABG PH Result 7.14 (7.35-7.45)
[2022-06-23 05:41] LABS: Folate Level 6.4 ng/mL (4.5-32.2)
[2022-06-23 06:06] LABS: D Dimer 1.03 ug/mIFEU (0-0.59)
--- NOTE | 2022-06-23 07:00 | PC.NURSE ---
Bedside report completed with SHILOH Saunders
--- NOTE | 2022-06-23 07:13 | PC.NURSE ---
Sodium Bicarb increase Dr. Peterson called and notified of critical ABG results, order received to increase sodium bicarb drip to 150 ml/hour. Fluids increased per DEC.
[2022-06-23] MEDS: sodium bicarbonate 150 MEQ in dextrose 5% 1,000 ML IV ×2 (09:38→18:06)
--- NOTE | 2022-06-23 09:46 | P.CONIM_ITS ---
Providers/Reason For Consult Consulting Physician/Specialty*: Urology/Alves Reason for Consult*: Bladder stones, urinary retention Requesting Physician: Dr. Mayank Khanna Attending Physician: Mayank Khanna MD Primary Care Provider: None listed History of Present Illness History of Present Illness Amos Schaefer is a 56 year old male familiar to me from evaluations performed roughly a decade ago. He was found to have high-grade extensive lamina propria invasive bladder cancer with no pursuit of evaluation in the face of hematuria for almost 2 years. Ultimately he underwent a cystectomy and ileal neobladder formation at the [facility] In November 2011. He did not keep his scheduled follow-up appointments on multiple occasions and has not been seen since. Patient presented to the emergency department on 06/22/2022 and is was admitted for sepsis. Work-up: Creatinine 6.6, BUN 146 White count 41.6 Arterial blood gas pH was 7.[address] scan: Severely distended ileal neobladder with 5 moderate size stones and 1 huge stone (almost 9 cm). Bilateral hydro. Placed on multiple broad-spectrum antibiotics. Yap catheter placed in the emergency department with a >1000 cc immediately drained and since that time about 1900 cc drained. Urine was grossly purulent But has cleared appropriately since catheter placed. Patient is in critical condition but showing some general improvement. Review of Systems General: Reports: ROS unobtainable due to mental status Medications/Allergies Home Medications Medication Instructions Recorded Confirmed Last Taken Type amoxicillin 875 mg-potassium 1 tab PO BID #18 tabs 06/28/22 07/09/22 Unknown Rx clavulanate 125 mg tablet folic acid 1 mg tablet 1,000 mcg PO DAILY #90 tabs 06/28/22 07/09/22 Unknown Rx levofloxacin 500 mg tablet 500 mg PO DAILY@0600 #9 tabs 06/28/22 07/09/22 Unknown Rx multivitamin 1 tab PO DAILY #90 tabs 06/28/22 07/09/22 Unknown Rx potassium chloride 20 mEq 20 meq PO DAILY #14 tabs 06/28/22 07/09/22 Unknown Rx tablet,extended release thiamine HCl (vitamin B1) 100 mg 100 mg PO DAILY #90 tabs 06/28/22 07/09/22 Unknown Rx tablet Allergies Allergy/AdvReac Type Severity Reaction Status Date / Time acetaminophen [From Vicodin] Allergy Mild ADR-Nausea Verified 07/09/22 09:51 cefaclor [From Ceclor] Allergy Mild ADR-Nausea Verified 07/09/22 09:51 hydrocodone [From Vicodin] Allergy Mild ADR-Nausea Verified 07/09/22 09:51 Current Medications Generic Name Dose Route Start Last Admin Trade Name Freq PRN Reason Stop Dose Admin Sodium Bicarbonate 150 meq/ 1,150 mls @ 150 mls/hr 06/22/22 22:57 06/23/22 09:38 Dextrose IV 150 mls/hr .[id number] ARAVIND Administration Phenobarbital Sodium 130 mg 06/22/22 23:39 06/23/22 05:26 Phenobarbital 130 Mg/Ml Sdv 1 Ml IV 130 mg Q3H PRN Administration CIWA 8-12, PFSH Acute PFSH: Medical History Acute urinary retention Bladder cancer 2017 Bladder stone CKD (chronic kidney disease) Falls Macrocytosis Metabolic acidemia No pertinent past medical history SBO (small bowel obstruction) Sepsis Surgical History S/P radical cystoprostatectomy Family History Mother Lung disease Dementia Father , AT AGE 28 MVA (motor vehicle accident) Other Cancer Social History Smoking and tobacco status: current every day smoker cigarettes and e- cigarettes Alcohol intake: former Marital status: Current occupational status: disabled History of recent travel: No Vitals/I&O/Wt Last Vital Signs Temp 97.7 F 06/23/22 04:00 Pulse 74 06/23/22 08:00 Resp 20 H 06/23/22 08:00 BP 110/62 06/23/22 05:30 Pulse Ox 100 06/23/22 08:00 O2 Del Method 06/23/22 08:00 O2 Flow Rate 2 06/23/22 08:00 06/22/22 06/23/22 06/23/22 22:59 06:59 14:59 Intake Total 1116.65 / 1116.65 3152.5 / 4269.15 510 / 510 Output Total 1989 Balance 1116.65 / 1116.65 1162.5 / 2279.15 510 / 510 Weight last 48 hrs Weight 101 lb 6.4 oz Physical Exam Narrative: Not alert, poorly responsive Labored respiration. Neck good range of motion. Abdomen is soft. No obvious tenderness Genital exam normal Lower extremity peripheral edema bilaterally No obvious seizure activity No gross bleeding Urinary Catheter Management: Yap: Cath Placed During This Visit: no Data : 06/28/22 04:52 06/28/22 04:52 Micro: Microbiology 06/22/22 18:45 Blood Culture - Preliminary Blood SPECIMEN COLLECTED 06/22/22 23:10 Legionella Urinary Antigen - Final Urine Catheterized 06/22/22 18:31 Blood Culture - Preliminary Blood SPECIMEN COLLECTED A&P Assessment and plan (1) Acute urinary retention: Status post neobladder formation. Has urinary retention with 3900 cc drained out when the catheter was placed Secondary bilateral hydronephrosis Status: Acute (2) Bladder stone: Multiple bladder stones the largest being about 9 cm and the other 5 stones being probably close to 1 to 2 cm. Status: Acute (3) Bladder replaced by other means: Ileal neobladder Status: Acute (4) Acute kidney injury: Secondary to obstructive uropathy Status: Acute (5) Lung nodule: Status: Acute (6) Altered mental status: Secondary to sepsis Status: Resolved (7) Sepsis: Status: Inactive Plan 1. No acute emergency related to the stones now that his bladder is drained. 2. Anticipate that he will require an open cystolithotomy through the neobladder wall. 3. We will plan on outpatient follow-up if he recovers from the septic episode. 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
--- NOTE | 2022-06-23 11:03 | PC.CHAP ---
Pastoral Care Encounter/Spiritual Assessment Type of Contact [] Declined mud mill tender visit [] Patient/Family/Request visit [] Outpatient visit [] Follow-up visit [] Physician referral [] Code/Alert [x] Routine visit [] Staff referral [] Actively dying [x] Patient sleeping [] Family support [] [] Out of room [] Palliative care [] [] Receiving care in room [] Pre-surgical visit [] Trauma [] Long length of stay [x] ICU visit [x] Other: when praying to not touch PT or bedding per staff Relational/Emotional Strength [] Patient feels connected with others/family/visitors/staff [] Distress [] Loneliness/isolation [] Abandonment Spirituality of Patient [] Person of Heidi [] Attends Mu-Ism of their Heidi [] Believes in Prayer [] Reads Bible or Uatsdin materials [] There are Spiritual issues to be addressed Assembly Line Worker Interventions [x] Prayer [] Active listening [] Non-anxious presence [] Spiritual/emotional support [] Crisis/trauma care [] Spiritual counseling [] Bereavement support [] Provided bereavement packet [] Provided Bible/devotional materials [] Provided toy/stuffed animal, coloring book to patient or family member [] Provided Communion [] Anointing/[place] [] Salvation [x] Completed spiritual assessment [] Other: Impact on Illness or Injury [] Angry [] Fearful [] Anxious [] Often cries [] Exhaustion [] Unable to work [] Unable to attend alevism [] Unable to walk/stand [] Unable to read [] Unable to drive [] Unable to eat/drink [] Unable to sleep [] Unable to be with family [] Patient intubated [] Other: Summary Time spent with patient
[2022-06-23] MEDS: piperacillin-tazobactam 3.375 GM in sodium chloride 0.9% (plus) 50 ML IV ×2 (11:57→20:50)
--- NOTE | 2022-06-23 12:34 | PC.SLP ---
Pt not alert enough to participate in KEY CARRIER assessment at this time.
--- NOTE | 2022-06-23 12:37 | PM.PN ---
Subjective Subjective: History and physical reviewed. Patient admitted overnight. When I try to question him, he will withdraw and yell out to touch. Medications: Reviewed: Yes Vitals/I&O/Wt Last Vital Signs Temp 97.7 F 06/23/22 04:00 Pulse 74 06/23/22 08:00 Resp 20 H 06/23/22 08:00 BP 110/62 06/23/22 05:30 Pulse Ox 100 06/23/22 08:00 O2 Del Method 06/23/22 08:00 O2 Flow Rate 2 06/23/22 08:00 06/22/22 06/23/22 06/23/22 22:59 06:59 14:59 Intake Total 1116.65 / 1116.65 3152.5 / 4269.15 510 / 510 Output Total 1989 Balance 1116.65 / 1116.65 1162.5 / 2279.15 510 / 510 Weight last 48 hrs Weight 45.994 kg Physical Exam Narrative: General exam is a white male, will yell out to touch, but I cannot get him to have a meaningful conversation with me. Neck is supple no lymphadenopathy or thyromegaly Cardiovascular regular rate and rhythm, heart sounds distant. 2/6 systolic murmur Lungs clear no wheezing or crackles. Diminished breath sounds are noted bilaterally Abdomen is soft. Bowel sounds are noted. exam demonstrates Yap Extremities no cyanosis clubbing. Refill around 2 seconds. Skin no rash Neuro no obvious focal deficits. Urinary Catheter Management: Yap: Cath Placed During This Visit: yes Reason for Continuing Indwelling Catheter: Accurate Measurement of Urinary Output in Critically Ill Patients Urinary Catheter Date of Insertion: 06/22/22 Data : 06/23/22 01:30 06/23/22 01:30 Micro: Microbiology 06/22/22 23:10 Bacterial Antigens - Final Urine,Voided 06/22/22 18:45 Blood Culture - Preliminary Blood SPECIMEN COLLECTED 06/22/22 23:10 Legionella Urinary Antigen - Final Urine Catheterized 06/22/22 18:31 Blood Culture - Preliminary Blood SPECIMEN COLLECTED A&P Assessment and plan (1) Acute kidney injury: Severe acute kidney injury on presentation. Likely secondary to your urinary retention He is not anuric Monitor closely for improvement of creatinine, which appears to be occurring currently. Status: Acute (2) Altered mental status: Multifactorial. Likely secondary to acute kidney injury, severe acidosis, potentially complicated by alcohol intake chronically. Head CT demonstrated no acute findings. Status: Acute (3) Acute urinary retention: Yap has been placed in his neobladder with resolution of urinary retention. Status: Acute (4) Bladder stone: Possibility of infected bladder stone is noted. Broad-spectrum IV antibiotics initiated. Status: Acute (5) Metabolic acidemia: Patient presents with severe non-anion gap metabolic acidosis. Bicarbonate drip as noted Close follow-up of electrolytes Status: Acute (6) Pneumonia: Present on admission Continue Zosyn and vancomycin Await cultures Status: Acute (7) Alcoholism: Monitor for withdrawal Phenobarbital as needed Status: Acute (8) Sepsis: Present on admission Demonstrated endorgan dysfunction on admission with mental status changes and acute renal failure Continue IV antibiotics vancomycin and Zosyn Await cultures Echocardiogram has been ordered and is pending. Status: Acute Plan Lung mass. Consider outpatient work-up once stabilized History of hepatitis C Multiple other medical problems as outlined in past medical history Full code currently Heparin for DVT prophylaxis Attestations Medical Necessity Statement*: Needs continued hospitalization for IV antibiotics secondary to sepsis and severe acidosis requiring bicarbonate drip. Critical Care Time: The high probability of a clinically significant, sudden or life threatening deterioration of the patient's [renal, electrolyte, infectious disease] system(s) required my full and direct attention, intervention and personal management. The critical care time is as shown. This time is in addition to time spent performing any reported procedures but includes the following: [x] Data and vital sign review and interpretation [x] Patient assessment, examination and intervention [x] Documentation [x] Medication orders and management Critical Care Time (min): 35 Coding Level of Care Code Acute Identity Management Developer for [facility] Fwd Diagnoses Acute kidney injury N17.9 Altered mental status R41.82 Acute urinary retention R33.8 Bladder stone N21.0 Metabolic acidemia E87.2 Pneumonia J18.9 Alcoholism F10.20 Sepsis A41.9
--- NOTE | 2022-06-23 15:00 | PC.NURSE ---
Dr Alves notified of bladder scan results of 740ml.. Orders to flush corbett catheter. Flushed catheter with 40 ml, immediate return of clear urine full of mucous particles.. Dr Alves messaged with update. NO further orders.
--- NOTE | 2022-06-23 17:57 | USCV_ITS ---
Amos Schaefer Age: 56 Gender: M : 1965 Exam Date: 06/23/2022 19:39 Ordering Phys: Mayank Khanna MD Technologist: IRASEMA Exam Location: [facility] – [place] Indication: Hypoxia BP: 126 / 90 HR: 94 Rhythm: Sinus Technical Quality: Adequate MEASUREMENTS (Male / Female) Normal Values 2D ECHO LV Diastolic Diameter PLAX 2.5 cm 4.2 - 5.9 / 3.9 - 5.3 cm LV Systolic Diameter PLAX 1.6 cm IVS Diastolic Thickness 1.3 cm 0.6 - 1.0 / 0.6 - 0.9 cm IVS Systolic Thickness 1.5 cm LVPW Diastolic Thickness 1.1 cm 0.6 - 1.0 / 0.6 - 0.9 cm LVPW Systolic Thickness 1.3 cm LVOT Diameter 1.9 cm LV Ejection Fraction 2D Teich 67.4 % LV Ejection Fraction MOD 2C 84.9 % LV Ejection Fraction 2C AL 86.9 % LA Diameter 2.6 cm LA Width 2.2 cm LA Height 3.2 cm RA Width 2.6 cm RA Height 3.3 cm Aorta at Sinotubular Diameter 2.6 cm IVC Diameter 1.3 cm M-MODE Aortic Annulus Diameter 2.7 cm LA Ao Ratio MM 1.0 MV E Point Septal Separation 0.1 cm DOPPLER AV Peak Velocity 129.0 cm/s LVOT Peak Velocity 131.0 cm/s AV Area Cont Eq vti 2.8 cm squared AV Area Cont Eq pk 2.9 cm squared MV Area PHT 2.5 cm squared Mitral E to A Ratio 1.1 MV E' Velocity 47.5 cm/s Mitral E to MV E' Ratio 7.7 Mitral E to LV E' Lateral Ratio 7.7 Mitral E to LV E' Septal Ratio 7.7 TR Peak Velocity 272.0 cm/s TR Peak Gradient 29.6 mmHg TV Peak E Velocity 47.0 cm/s Right Atrial Pressure 5.0 mmHg Pulmonary Artery Systolic Pressu 34.6 mmHg PV Peak Velocity 126.0 cm/s RV Acceleration Time 0.1 s RV Ejection Time 0.4 s RV AcT/ET 0.4 FINDINGS Left Ventricle Normal left ventricular size, systolic function and wall thickness, with no regional wall motion abnormalities. Left ventricular ejection fraction is estimated at 70 %. Normal diastolic function. Right Ventricle Normal right ventricular size and systolic function. Right ventricular systolic pressure 31 mmHg. Right Atrium Normal right atrial size. Left Atrium Normal left atrial size. Mitral Valve Moderately thickened mitral valve. No mitral valve stenosis. Trace mitral valve regurgitation. Aortic Valve Structurally normal trileaflet aortic valve. No aortic valve stenosis. No aortic valve regurgitation. Tricuspid Valve Structurally normal tricuspid valve. No tricuspid valve stenosis. Trace tricuspid valve regurgitation. Pulmonic Valve Structurally normal pulmonic valve. No pulmonary valve stenosis. Pericardium No pericardial effusion. Aorta Normal size aortic root and proximal ascending aorta. IVC Normal IVC dimension with >50% respiratory change of the inferior vena cava. CONCLUSIONS 1. Normal left ventricular size, systolic function and wall thickness, with no regional wall motion abnormalities. Left ventricular ejection fraction is estimated at 70 %. Normal diastolic function. 2. Normal right ventricular size and systolic function. 3. Moderately thickened mitral valve. Trace mitral valve regurgitation. 4. Normal pulmonary artery pressure. 5. No prior similar studies to compare. Yahaira Lobato MD (Electronically Signed) Final Date: 24 June 2022 13:40 S
--- NOTE | 2022-06-23 19:20 | PC.NURSE ---
Bedside report completed with Kenan Wren
[2022-06-23 19:44] LABS: Anion Gap 11.5 (5-19); Calcium 8.2 mg/dL (8.5-10.5); Carbon Dioxide 11 mmol/L (22-29); Chloride 131 mmol/L (98-107); Glomerular Filtration Rate 37.1 mL/min (90-130); Glucose 130 mg/dL (65-115); Osmolality Calculated 347 mOsm/kg (285-295); Sodium 151 mmol/L (136-145)
[2022-06-23 19:48] LABS: Potassium 2.5 mmol/L (3.5-5.1)
[2022-06-23 19:49] LABS: Blood Urea Nitrogen 105 mg/dL (6-20)
[2022-06-23] MEDS: dextrose 5%-sod chloride 0.45% 1,000 ML 100 ML IV (20:50)
--- NOTE | 2022-06-23 20:58 | PC.NURSE ---
Shift Note: Pt had rested in bed throughout shift. He only stirs, to moan or once he said quit it , when repositioned or bed linens moved. He did o pn his eyes to his name, and indicated he did not know where he once once at beginning of shift. He has be afebrile, VSS. Bicarb gtt continues to infuse at 150ml/hr. Pt has dime and nickel szied pustules/ sores on his upper thighs. His bladder was distended, confirmed with bladder scan early this afternoon. Urine so full of mucous that Yap requires flushing on occasion to unclog. Multiple family members in briefly this afternoon. Frequent safety and comfort rounds continue. Orders and/or nursing care completed as indicated. Patient monitored for response to intervention and treatment(s). Education provided includes progress, plan of care and medications. Patient and/or solar manufacturer's representative re inforcement needed for family of [facility] nof care, medications and progress, patient not alert enough to comprehend. Will continue to monitor.
[2022-06-23] MEDS: lidocaine 1% 5 ML in potassium chloride premix 100 ML 25 ML IV (21:41)
--- NOTE | 2022-06-23 23:42 | USCV_ITS ---
Amos Schaefer Age: 56 Gender: M : 1965 Exam Date: 06/23/2022 08:12 Ordering Phys: Haroon Peterson MD Technologist: Robin Saha [place] [facility] [place]: Afib, murmur BP: 130 / 89 HR: Rhythm: Sinus Technical Quality: Adequate MEASUREMENTS (Male / Female) Normal Values 2D ECHO LV Diastolic Diameter PLAX 5.1 cm 4.2 - 5.9 / 3.9 - 5.3 cm LV Systolic Diameter PLAX 3.2 cm IVS Diastolic Thickness 1.0 cm 0.6 - 1.0 / 0.6 - 0.9 cm IVS Systolic Thickness 1.3 cm LVPW Diastolic Thickness 0.9 cm 0.6 - 1.0 / 0.6 - 0.9 cm LVPW Systolic Thickness 1.4 cm LVOT Diameter 2.0 cm LV Ejection Fraction 2D Teich 67.5 % LA Diameter 3.5 cm Aorta at Sinotubular Diameter 3.3 cm IVC Diameter 1.6 cm M-MODE RV Diastolic Diameter MM 3.9 cm Aortic Annulus Diameter 4.0 cm LA Ao Ratio MM 0.9 MV E Point Septal Separation 2.0 cm DOPPLER LVOT Peak Velocity 67.0 cm/s MV Area PHT 3.9 cm squared Mitral E to A Ratio 0.9 MV E' Velocity 33.0 cm/s Mitral E to MV E' Ratio 6.0 Mitral E to LV E' Lateral Ratio 4.6 Mitral E to LV E' Septal Ratio 8.9 TR Peak Velocity 339.3 cm/s TR Peak Gradient 46.1 mmHg TV Peak E Velocity 174.0 cm/s Right Atrial Pressure 3.0 mmHg Pulmonary Artery Systolic Pressu 49.1 mmHg RV Acceleration Time 0.1 s FINDINGS Left Ventricle Normal left ventricular size and wall thickness. Mildly decreased left ventricle systolic function. Left ventricular ejection fraction is estimated at 50 %. Mild global hypokinesis. Right Ventricle Normal right ventricular size and systolic function. Right ventricular systolic pressure 44 mmHg. Right Atrium Normal right atrial size. Left Atrium Normal left atrial size. Mitral Valve Mildly thickened mitral valve. No mitral valve stenosis. Mild mitral valve regurgitation. Aortic Valve Structurally normal trileaflet aortic valve. No aortic valve stenosis. Trace aortic valve regurgitation. Tricuspid Valve Structurally normal tricuspid valve. Mild tricuspid valve regurgitation. Pulmonic Valve Structurally normal pulmonic valve. Pericardium No pericardial effusion. Aorta Normal size aortic root and proximal ascending aorta. IVC Normal IVC dimension with >50% respiratory change of the inferior vena cava. CONCLUSIONS 1. Normal left ventricular size and wall thickness. Mildly decreased left ventricle systolic function. Left ventricular ejection fraction is estimated at 50 %. Mild global hypokinesis. 2. Normal right ventricular size and systolic function. 3. Mild mitral and tricuspid valve regurgitation. 4. Mild pulmonary hypertension with pulmonary artery pressure estimated at 44 mmHg. 5. No prior similar studies to compare. Yahaira Lobato MD (Electronically Signed) Final Date: 23 June 2022 17:15 S
[2022-06-24] VITALS (49 sets, daily range): BP systolic 87–135; BP diastolic 53–91; PULSE 59–90; RESP 14–32; TEMP 36.8–36.9; O2SAT 76–100
[2022-06-24] MEDS: vancomycin 750 MG in sodium chloride 0.9% 250 ML 250 MG IV (00:09)
--- NOTE | 2022-06-24 00:23 | PC.NURSE ---
Upon start of shift, patients left AC IV was occluded several times and positional. Approximately 2200 the IV was unable to run any fluids and the dressing removed. The catheter had a visible kink and was DC. Due to the need to start incompatible fluids including Vanc, a new IV was attempted by 3 RNs. A successful one was final obtained in the left forearm and Vancomycin initiated. Pharmacy was contacted to re-time the next dose. IV fluids were paused as they are incompatible and Vancomycin is running at 250ml/hr along with K+ in the other IV site.
[2022-06-24] MEDS: lidocaine 1% 5 ML in potassium chloride premix 100 ML 25 ML IV (01:26)
[2022-06-24] MEDS: PHENobarbital 130 mg/mL SDV 1 mL IV ×3 (01:50→21:08)
[2022-06-24 03:57] LABS: ABG PCO2 25.7 mmHg (35-45); ABG PH Result 7.26 (7.35-7.45); Arterial Blood Gas Hematocrit 43.4 % (42-52); Base Excess ABG -13.8 mmol/L (-2.0-2.0); Blood Gas Allen Test Pos; Blood Gas Operator Identificat JB; Blood Gas Sample Site Radial, right; Blood Gas Sample Type Arterial; HCO3 ABG 11.5 mmol/L (22-26); Oxygen Device NC; PO2 ABG 85.6 mmHg (80.0-100.0)
[2022-06-24] MEDS: piperacillin-tazobactam 3.375 GM in sodium chloride 0.9% (plus) 50 ML IV ×3 (03:58→20:40)
[2022-06-24 04:59] LABS: Basophils % 0.1 %; Eosinophils % 0.1 %; Hematocrit 34.8 % (42.0-52.0); Hemoglobin 11.5 g/dL (11.7-16.6); Lymphocytes # 0.5 10^3/uL (0.8-4.8); Lymphocytes % 3.9 %; Mean Corpuscular Hemoglobin 32.5 pg (28.0-34.0); Mean Corpuscular Volume 98.3 fl (80-94); Mean Platelet Volume 10.4 fL (7.4-10.4); Monocytes # 0.8 10^3/uL (0.2-0.9); Neutrophils # 12.16 10^3/uL (1.8-7.7); Neutrophils % 89.4 %; Nucleated Red Blood Cells % 0 %; Platelet Count 265 10^3/cmm (130-400); Red Blood Count 3.54 10^6/uL (4.1-5.3); Red Cell Distribution Width 13.8 % (12.1-15.1); White Blood Count 13.6 10^3/uL (4.0-10.0)
[2022-06-24 05:18] LABS: Alanine Aminotransferase 10 U/L (0-41); Albumin Level 2.3 g/dL (3.5-5.2); Alkaline Phosphatase 83 U/L (40-130); Aspartate Amino Transferase 16 U/L (0-40); Calcium 8.4 mg/dL (8.5-10.5); Carbon Dioxide 11 mmol/L (22-29); Chloride 138 mmol/L (98-107); Globulin 2.9 g/dL (1.3-4.6); Glomerular Filtration Rate 37.1 mL/min (90-130); Glucose 126 mg/dL (65-115); Magnesium 2.2 mg/dL (1.7-2.3); Osmolality Calculated 353 mOsm/kg (285-295); Phosphorus 1.3 mg/dL (2.5-4.5); Sodium 156 mmol/L (136-145); Total Bilirubin 0.2 mg/dL (0.15-1.2); Total Protein 5.2 g/dL (6.6-8.7)
[2022-06-24 05:19] LABS: Anion Gap 10.2 (5-19); Potassium 3.2 mmol/L (3.5-5.1)
[2022-06-24 05:30] LABS: Blood Urea Nitrogen 95 mg/dL (6-20)
[2022-06-24 06:15] LABS: Slide Review Slide Review Perform
[2022-06-24] MEDS: dextrose 5% 1,000 ML 100 ML IV ×2 (08:18→17:17)
--- NOTE | 2022-06-24 10:37 | PC.CHAP ---
Pastoral Care Encounter/Spiritual Assessment Type of Contact [] Declined auditor/quality visit [] Patient/Family/Request visit [] Outpatient visit [] Follow-up visit [] Physician referral [] Code/Alert [x] Routine visit [] Staff referral [] Actively dying [x] Patient sleeping [] Family support [] [] Out of room [] Palliative care [] [] Receiving care in room [] Pre-surgical visit [] Trauma [] Long length of stay [x] ICU visit [] Other: Relational/Emotional Strength [] Patient feels connected with others/family/visitors/staff [] Distress [] Loneliness/isolation [] Abandonment Spirituality of Patient [] Person of Heidi [] Attends Christian of their Heidi [] Believes in Prayer [] Reads Bible or Lutheran materials [] There are Spiritual issues to be addressed Rod Drawer Interventions [x] Prayer [] Active listening [] Non-anxious presence [] Spiritual/emotional support [] Crisis/trauma care [] Spiritual counseling [] Bereavement support [] Provided bereavement packet [] Provided Bible/devotional materials [] Provided toy/stuffed animal, coloring book to patient or family member [] Provided Communion [] Anointing/[place] [] Salvation [x] Completed spiritual assessment [] Other: Impact on Illness or Injury [] Angry [] Fearful [] Anxious [] Often cries [] Exhaustion [] Unable to work [] Unable to attend druze [] Unable to walk/stand [] Unable to read [] Unable to drive [] Unable to eat/drink [] Unable to sleep [] Unable to be with family [] Patient intubated [] Other: Summary Time spent with patient
--- NOTE | 2022-06-24 11:13 | P.PN_ITS ---
Subjective Subjective: Amos is able to awaken, say a few words, and denies any pain this morning. He still seems somewhat dazed. Medications: Reviewed: Yes Vitals/I&O/Wt Last Vital Signs Temp 98.3 F 06/24/22 05:30 Pulse 60 06/24/22 10:00 Resp 18 06/24/22 10:00 BP 105/67 06/24/22 10:00 Pulse Ox 97 06/24/22 10:00 O2 Del Method 06/24/22 07:59 O2 Flow Rate 2 06/24/22 07:59 06/23/22 06/24/22 06/24/22 22:59 06:59 14:59 Intake Total 1200 / 1710 638.75 / 2348.75 Output Total 1365 / 1365 495 / 1860 Balance -165 / 345 143.75 / 488.75 Weight last 48 hrs Weight 45.994 kg Physical Exam Narrative: General exam is a white male, now responsive Neck is supple no lymphadenopathy or thyromegaly Cardiovascular regular rate and rhythm, heart sounds distant. 2/6 systolic murmur Lungs clear no wheezing or crackles. Diminished breath sounds are noted bilaterally Abdomen is soft. Bowel sounds are noted. exam demonstrates Yap Extremities no cyanosis clubbing. Refill around 2 seconds. Skin no rash Neuro no obvious focal deficits. Urinary Catheter Management: Yap: Cath Placed During This Visit: yes Reason for Continuing Indwelling Catheter: Accurate Measurement of Urinary Output in Critically Ill Patients Urinary Catheter Date of Insertion: 06/22/22 Data : 06/24/22 04:42 06/24/22 04:42 Micro: Microbiology 06/22/22 18:45 Blood Culture - Preliminary Blood NEGATIVE TO DATE 06/22/22 18:31 Blood Culture - Preliminary Blood NEGATIVE TO DATE 06/23/22 00:00 MRSA Culture - Final Nose 06/22/22 23:10 Bacterial Antigens - Final Urine,Voided A&P Assessment and plan (1) Acute kidney injury: Severe acute kidney injury on presentation. Likely secondary to your urinary retention He is not anuric Renal function has been rapidly improving. Status: Acute (2) Altered mental status: Multifactorial. Likely secondary to acute kidney injury, severe acidosis, potentially complicated by alcohol intake chronically. Head CT demonstrated no acute findings. He is significantly improving. Status: Acute (3) Acute urinary retention: Yap has been placed in his neobladder with resolution of urinary retention. Status: Acute (4) Bladder stone: Possibility of infected bladder stone is noted. Broad-spectrum IV antibiotics initiated. Urology consultation appreciated Status: Acute (5) Metabolic acidemia: Patient presents with severe non-anion gap metabolic acidosis. Bicarbonate drip initially, since discontinued Acidosis appears to be resolving He has developed significant hyponatremia despite half-normal saline. Placed on D5W and check sodium later in the day. Status: Acute (6) Pneumonia: Present on admission Continue Zosyn and vancomycin Still awaiting cultures. Status: Acute (7) Alcoholism: Monitor for withdrawal Phenobarbital as needed Status: Acute (8) Sepsis: Present on admission Demonstrated endorgan dysfunction on admission with mental status changes and acute renal failure Continue IV antibiotics vancomycin and Zosyn Await cultures Echocardiogram demonstrates an EF of 50%, mild global hypokinesis. Mild pulmonary hypertension. Status: Acute Plan Lung mass. Consider outpatient work-up once stabilized History of hepatitis C Multiple other medical problems as outlined in past medical history Full code currently Heparin for DVT prophylaxis Attestations Medical Necessity Statement*: Needs continued hospitalization secondary to severe acidosis, renal failure, pneumonia. Critical Care Time: The high probability of a clinically significant, sudden or life threatening deterioration of the patient's [pulmonary, cardiac, infectious disease, renal] system(s) required my full and direct attention, intervention and personal management. The critical care time is as shown. This time is in addition to time spent performing any reported procedures but includes the following: [x] Data and vital sign review and interpretation [x] Patient assessment, examination and intervention [x] Documentation [x] Medication orders and management Critical Care Time (min): 32 Coding Level of Care Code Acute Casino Floor Walker for [facility] Fwd Diagnoses Acute kidney injury N17.9 Altered mental status R41.82 Acute urinary retention R33.8 Bladder stone N21.0 Metabolic acidemia E87.2 Pneumonia J18.9 Alcoholism F10.20 Sepsis A41.9
--- NOTE | 2022-06-24 13:13 | PC.NUTR ---
Consult for TPN received. If medically necessary, recommend starting TPN @ 12 mls/hr and increasing 10 mls Q8H until goal rate of 62 mls/hr is reached with 25 grams fat emulsion/125 mls, multivitamins 10 mls/day and standard electrolytes or per MD discretion. Details in RD assessment.
--- NOTE | 2022-06-24 18:45 | PC.SLP ---
Patient has displayed periods of alertness today. WORKPLACE RELATIONS ADVISER will attempt to evaluate/assess the patient's abilities tomorrow. Per report of the patient's nurse, the patient has been able to take small sips of thickened liquid, but does have difficulty with larger sips, with coughing noted. Very limited intake reported, however, as the patient has not wanted to drink.
[2022-06-24 19:58] LABS: HEP C RNA Viral Load Quant 450000 IU/mL (NOT DETECTED); HEP C RNA Viral Load Quant 5.65 Log IU/mL (NOT DETECTED)
--- NOTE | 2022-06-24 21:21 | PC.NURSE ---
Addendum entered by Renan Monteiro RN 06/24/22 21:34: During event patient tore open wound on weft forearm. After patient settled bandage was applied. Original Note: Patient refused lab draw this evening and became agitated sitting up in the bed. Patient was able to grab syringe from lab employee. Syringe was removed from his hand and he began to rip of leads and demand for us to leave. Patient was allowed to calm down and re-entered room approximately 10 minutes later. After some oral fluids patient allowed leads to be returned and accepted dose of phenobarb to help with anxiety. Hospitalist notified of situation and increasing agitation. No new orders received other than use phenobarb as needed.
[2022-06-25] VITALS (47 sets, daily range): BP systolic 84–127; BP diastolic 54–89; PULSE 59–93; RESP 10–27; TEMP 36.6; O2SAT 91–100
[2022-06-25] MEDS: vancomycin 750 MG in sodium chloride 0.9% 250 ML 250 MG IV (00:05)
[2022-06-25] MEDS: PHENobarbital 130 mg/mL SDV 1 mL IV ×2 (00:20→03:40)
[2022-06-25] MEDS: piperacillin-tazobactam 3.375 GM in sodium chloride 0.9% (plus) 50 ML IV ×3 (04:46→19:55)
[2022-06-25] MEDS: dextrose 5% 1,000 ML 100 ML IV (05:03)
--- NOTE | 2022-06-25 05:18 | PC.NURSE ---
Patient has remained more agitated this evening. Phenobarbital has been admitted to help keep patient from becoming too agitated and patient has accepted doses willingly. Patient has been difficult to understand and more demanding as the night has progressed. Requests for drinks have not been tolerated well. Thickener has been used and patient sat upright but still had difficulties swallowing. Drinks from oral sponge have been the most successful. Hospitalist messaged regarding uncollected labs due to patient refusal. Advised to wait until morning and access patients cooperation.
--- NOTE | 2022-06-25 07:36 | PC.NURSE ---
Patient cussing at Dr. Khanna during rounding, staff unable to deescalate patient. began hitting and kicking at staff, trying to get out of bed. attempting to pull out IVs and telemetry leads. V.O. given for IM Haldol and soft wrist restraints
[2022-06-25] MEDS: haloperidol inj 5 mg/mL INJ 1 mL IM ×2 (07:41→15:54)
[2022-06-25] MEDS: dexmedeTOMIDine 0.9 % NaCL 400 MCG/100 ML PREMIX 10.35 MCG IV (07:44)
[2022-06-25 08:15] LABS: Basophils % 0.2 %; Eosinophils # 0.1 10^3/uL (0.0-0.8); Eosinophils % 0.8 %; Hematocrit 37.2 % (42.0-52.0); Hemoglobin 12.3 g/dL (11.7-16.6); Lymphocytes # 0.8 10^3/uL (0.8-4.8); Lymphocytes % 6.5 %; Mean Corpuscular HGB Conc 33.1 g/dL (30.0-36.0); Mean Corpuscular Hemoglobin 32.6 pg (28.0-34.0); Mean Corpuscular Volume 98.7 fl (80-94); Mean Platelet Volume 10.6 fL (7.4-10.4); Monocytes # 0.8 10^3/uL (0.2-0.9); Monocytes % 5.9 %; Neutrophils # 11.18 10^3/uL (1.8-7.7); Neutrophils % 86.1 %; Nucleated Red Blood Cells % 0 %; Platelet Count 206 10^3/cmm (130-400); Red Blood Count 3.77 10^6/uL (4.1-5.3); Red Cell Distribution Width 14.4 % (12.1-15.1)
[2022-06-25 08:35] LABS: Alanine Aminotransferase 13 U/L (0-41); Albumin Level 2.5 g/dL (3.5-5.2); Alkaline Phosphatase 79 U/L (40-130); Aspartate Amino Transferase 18 U/L (0-40); Blood Urea Nitrogen 56 mg/dL (6-20); Calcium 8.6 mg/dL (8.5-10.5); Carbon Dioxide 12 mmol/L (22-29); Chloride 131 mmol/L (98-107); Globulin 3.1 g/dL (1.3-4.6); Glomerular Filtration Rate 42.2 mL/min (90-130); Glucose 114 mg/dL (65-115); Osmolality Calculated 332 mOsm/kg (285-295); Sodium 153 mmol/L (136-145); Total Bilirubin 0.3 mg/dL (0.15-1.2); Total Protein 5.6 g/dL (6.6-8.7)
[2022-06-25 08:49] LABS: Anion Gap 12.8 (5-19)
[2022-06-25 08:50] LABS: Potassium 2.8 mmol/L (3.5-5.1)
[2022-06-25] MEDS: lidocaine 1% 5 ML in potassium chloride premix 100 ML 25 ML IV ×2 (09:25→12:50)
--- NOTE | 2022-06-25 10:34 | PM.PN ---
Subjective Subjective: Amos awaken when I went in the room. He seemed confused. From my understanding he got several doses of phenobarbital through the night. When I attempted to listen to him, he went into a cussing tirade. Medications: Reviewed: Yes Vitals/I&O/Wt Last Vital Signs Temp 98.4 F 06/24/22 19:30 Pulse 93 06/25/22 07:30 Resp 26 H 06/25/22 07:30 BP 108/66 06/25/22 07:30 Pulse Ox 95 06/25/22 07:30 O2 Del Method 06/24/22 23:00 O2 Flow Rate 2 06/24/22 23:00 06/24/22 06/25/22 06/25/22 22:59 06:59 14:59 Intake Total 1148.333 / 2515.012 2290 / 2584.583 Output Total 950 / 950 550 / 1500 Balance 198.333 / 334.583 750 / 1084.583 Physical Exam Narrative: General exam is a white male, agitated, responsive, but appears confused. Neck is supple no lymphadenopathy or thyromegaly Cardiovascular regular rate and rhythm, heart sounds distant. 2/6 systolic murmur Lungs clear no wheezing or crackles. Diminished breath sounds are noted bilaterally Abdomen is soft. Bowel sounds are noted. exam demonstrates Yap Extremities no cyanosis clubbing. Refill around 2 seconds. Skin no rash Neuro no obvious focal deficits. Urinary Catheter Management: Yap: Cath Placed During This Visit: yes Reason for Continuing Indwelling Catheter: Accurate Measurement of Urinary Output in Critically Ill Patients Urinary Catheter Date of Insertion: 06/22/22 Data : 06/25/22 08:06 06/25/22 08:06 Micro: Microbiology 06/22/22 21:53 Urine Culture - Final Urine,Clean Catch 06/22/22 18:45 Blood Culture - Preliminary Blood NEGATIVE TO DATE A&P Assessment and plan (1) Acute kidney injury: Severe acute kidney injury on presentation. Likely secondary to your urinary retention He is not anuric Renal function continues to improve Status: Acute (2) Altered mental status: Multifactorial. Likely secondary to acute kidney injury, severe acidosis, potentially complicated by alcohol intake chronically. Head CT demonstrated no acute findings. This is improved but he is now agitated. I am not for sure if this is his baseline. He is agitated enough that I am worried regarding his current medical condition, laboratory, hypernatremia, etc. Haldol 5 mg IM given, an order for Precedex to be initiated if needed. Status: Acute (3) Acute urinary retention: Yap has been placed in his neobladder with resolution of urinary retention. Status: Acute (4) Bladder stone: Possibility of infected bladder stone is noted. Broad-spectrum IV antibiotics initiated. Urology consultation appreciated Status: Acute (5) Metabolic acidemia: Patient presents with severe non-anion gap metabolic acidosis. Bicarbonate drip initially, since discontinued Acidosis appears to be slowly resolving He has developed significant hyponatremia despite half-normal saline. Placed on D5W. Sodium slowly improving. Continue D5W currently. Status: Acute (6) Pneumonia: Present on admission Continue Zosyn and vancomycin Status: Acute (7) Alcoholism: Monitor for withdrawal Initiate Precedex drip secondary to severe agitation, endangering his current medical treatment. Status: Acute (8) Sepsis: Present on admission Demonstrated endorgan dysfunction on admission with mental status changes and acute renal failure Continue IV antibiotics vancomycin and Zosyn Urine culture reported is greater than 100,000 colonies mixed superficial aubrey. Blood cultures negative to date MRSA PCR positive Echocardiogram demonstrates an EF of 50%, mild global hypokinesis. Mild pulmonary hypertension. Status: Acute Plan Hypokalemia. Supplement IV. Recheck later today History of transitional cell cancer of the bladder, with history of neobladder formation Lung mass. Consider outpatient work-up once stabilized History of hepatitis C. Has significant viral load. Consider treatment as outpatient if he wishes Multiple other medical problems as outlined in past medical history Full code currently Heparin for DVT prophylaxis Attestations Medical Necessity Statement*: Needs continued hospital stay secondary to severe electrolyte abnormality, sepsis Critical Care Time: The high probability of a clinically significant, sudden or life threatening deterioration of the patient's [genitourinary, infectious disease, renal, neurologic] system(s) required my full and direct attention, intervention and personal management. The critical care time is as shown. This time is in addition to time spent performing any reported procedures but includes the following: [x] Data and vital sign review and interpretation [x] Patient assessment, examination and intervention [x] Documentation [x] Medication orders and management Critical Care Time (min): 36 Coding Level of Care Code Acute Professor Of Environmental Science for Paige Heard Diagnoses Acute kidney injury N17.9 Altered mental status R41.82 Acute urinary retention R33.8 Bladder stone N21.0 Metabolic acidemia E87.2 Pneumonia J18.9 Alcoholism F10.20 Sepsis A41.9
--- NOTE | 2022-06-25 11:51 | PC.CHAP ---
Pastoral Care Encounter/Spiritual Assessment Type of Contact [] Declined senior quality assurance specialist visit [] Patient/Family/Request visit [] Outpatient visit [] Follow-up visit [] Physician referral [] Code/Alert [x] Routine visit [] Staff referral [] Actively dying [x] Patient sleeping [] Family support [] [] Out of room [] Palliative care [] [] Receiving care in room [] Pre-surgical visit [] Trauma [] Long length of stay [x] ICU visit [x] Other: PT continues to rest.. seems weak Relational/Emotional Strength [] Patient feels connected with others/family/visitors/staff [] Distress [] Loneliness/isolation [] Abandonment Spirituality of Patient [] Person of Heidi [] Attends Latter Day of their Heidi [] Believes in Prayer [] Reads Bible or Adventism materials [] There are Spiritual issues to be addressed Through Operator Interventions [x] Prayer [] Active listening [] Non-anxious presence [] Spiritual/emotional support [] Crisis/trauma care [] Spiritual counseling [] Bereavement support [] Provided bereavement packet [] Provided Bible/devotional materials [] Provided toy/stuffed animal, coloring book to patient or family member [] Provided Communion [] Anointing/[place] [] Salvation [x] Completed spiritual assessment [] Other: Impact on Illness or Injury [] Angry [] Fearful [] Anxious [] Often cries [] Exhaustion [] Unable to work [] Unable to attend scientology [] Unable to walk/stand [] Unable to read [] Unable to drive [] Unable to eat/drink [] Unable to sleep [] Unable to be with family [] Patient intubated [] Other: Summary Time spent with patient
--- NOTE | 2022-06-25 15:28 | PC.NURSE ---
Lost IV access, patient yelling and cussing at staff, not cooperating. unable to obtain IV access. Dr. Khanna gave v.o haldol 5mg IM now
[2022-06-25] MEDS: morphine 4 mg/mL SDV 1 mL 2 MG IVP (17:25)
[2022-06-25 19:36] LABS: Anion Gap 10.3 (5-19); Blood Urea Nitrogen 57 mg/dL (6-20); Calcium 8.5 mg/dL (8.5-10.5); Carbon Dioxide 11 mmol/L (22-29); Chloride 131 mmol/L (98-107); Glomerular Filtration Rate 57.5 mL/min (90-130); Glucose 99 mg/dL (65-115); Osmolality Calculated 324 mOsm/kg (285-295); Potassium 3.3 mmol/L (3.5-5.1); Sodium 149 mmol/L (136-145)
--- NOTE | 2022-06-25 23:51 | PC.NURSE ---
Pt stated to workers compensation administrator you're not drawing any fucking blood, get the fuck out of my room. Labs to be drawn included a vanc trough. Given the inability to determine level, scheduled 0000 dose of vanc will not be administered.
[2022-06-26] VITALS (35 sets, daily range): BP systolic 85–129; BP diastolic 52–101; PULSE 56–104; RESP 9–32; TEMP 36.1–36.9; O2SAT 82–99
[2022-06-26] MEDS: piperacillin-tazobactam 3.375 GM in sodium chloride 0.9% (plus) 50 ML IV ×3 (04:25→20:56)
[2022-06-26] MEDS: dextrose 5% 1,000 ML 100 ML IV ×3 (04:26→20:58)
[2022-06-26] MEDS: sennosides-docusate Tablet 1 TAB PO (08:12)
[2022-06-26] MEDS: morphine 4 mg/mL SDV 1 mL 2 MG IVP ×2 (14:06→20:55)
--- NOTE | 2022-06-26 14:49 | P.PN_ITS ---
Subjective Subjective: Patient is alert awake and oriented this morning. States feeling much better. He is off restraints. Complained of some generalized body ache. Resolved after being given morphine. Leukocytosis continues to trend down. He is currently on room air. Medications: Reviewed: Yes Vitals/I&O/Wt Last Vital Signs Temp 97.0 F L 06/26/22 08:00 Pulse 95 06/26/22 14:00 Resp 32 H 06/26/22 13:30 BP 110/82 06/26/22 13:30 Pulse Ox 90 06/26/22 11:00 O2 Del Method 06/26/22 08:08 O2 Flow Rate 2 06/24/22 23:00 06/25/22 06/26/22 06/26/22 22:59 06:59 14:59 Intake Total 1050 / 1185.417 50 / 6109.484 0435.31 / 1766.31 Output Total 1000 / 1000 825 / 1825 Balance 50 / 185.417 -775 / -501.810 1225.31 / 1766.31 Physical Exam Narrative: General: No acute distress, AO x3 HEENT: PERRLA, pupils bilaterally equal and reactive, pallors not present Chest: Normal vesicular breath sounds, no added sounds, equal good air entry bilaterally CVS: S1-S2 regular, no murmurs, no tachycardia, no gallops, no rubs Abdomen: Soft, nontender, no organomegaly, bowel sounds present Neuro: No focal deficits, no facial deformity, AO x3, power 5/5 in all limbs Extremities: Multiple scabs in various stages of healing noted all over the body, including plantar aspect. Urinary Catheter Management: Yap: Cath Placed During This Visit: yes Reason for Continuing Indwelling Catheter: Accurate Measurement of Urinary Output in Critically Ill Patients Urinary Catheter Date of Insertion: 06/22/22 Data : 06/25/22 08:06 06/25/22 18:50 A&P Assessment and plan (1) Acute kidney injury: Severe acute kidney injury on presentation. Likely secondary to your urinary retention This is currently much improved. Urine output 1.8 L. Status: Acute (2) Altered mental status: Multifactorial. Likely secondary to acute kidney injury, severe acidosis, potentially complicated by alcohol intake chronically. Head CT demonstrated no acute findings. His mentation is back to baseline today. Patient is alert awake oriented, able to participate in conversation Status: Acute (3) Acute urinary retention: Yap has been placed in his neobladder with resolution of urinary retention. Status: Acute (4) Bladder stone: Possibility of infected bladder stone is noted. Broad-spectrum IV antibiotics initiated. Continue piperacillin tazobactam and vancomycin. Urine cultures with multiple aubrey, suspect this is related to the ileal neobladder. Status: Acute (5) Metabolic acidemia: Patient presents with severe non-anion gap metabolic acidosis. Bicarbonate drip initially, since discontinued Acidosis appears to be slowly resolving He has developed significant hypernatremia despite half-normal saline. Placed on D5W. Sodium slowly improving. Continue D5W currently. Status: Acute (6) Pneumonia: Present on admission Continue Zosyn and vancomycin MRSA nares positive. Bacterial antigens and urine Legionella antigen negative. Status: Acute (7) Alcoholism: Monitor for withdrawal Status: Acute (8) Sepsis: Present on admission Demonstrated endorgan dysfunction on admission with mental status changes and acute renal failure Continue IV antibiotics vancomycin and Zosyn Urine culture reported is greater than 100,000 colonies mixed superficial aubrey. Blood cultures negative to date MRSA PCR positive Echocardiogram demonstrates an EF of 50%, mild global hypokinesis. Mild pulmonary hypertension. Status: Acute Plan Hypokalemia. Supplement IV. History of transitional cell cancer of the bladder, with history of neobladder formation. Appreciate urology recommendations Lung mass. Consider outpatient work-up once stabilized History of hepatitis C. Has significant viral load. Consider treatment as outpatient if he wishes. Check HIV and hepatitis B screen Multiple other medical problems as outlined in past medical history Full code currently Heparin for DVT prophylaxis Attestations Medical Necessity Statement*: Mental status is much improved today. Transfer out of ICU onto medical floors. Anticipate discharge in 24 to 48 hours if continued improvement. 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
--- NOTE | 2022-06-26 17:31 | PC.NURSE ---
Patient came to floor from ICU by ICU nurses. Patient is resting in bed, call light in reach.
[2022-06-26] MEDS: mupirocin oint 22 gm 1 APPLIC NOSTRIL-B (17:56)
[2022-06-26 19:19] LABS: Basophils % 0.3 %; Eosinophils # 0.2 10^3/uL (0.0-0.8); Eosinophils % 1.4 %; Hematocrit 36.9 % (42.0-52.0); Hemoglobin 12.1 g/dL (11.7-16.6); Lymphocytes # 0.8 10^3/uL (0.8-4.8); Lymphocytes % 5.6 %; Mean Corpuscular HGB Conc 32.8 g/dL (30.0-36.0); Mean Corpuscular Hemoglobin 32.4 pg (28.0-34.0); Mean Corpuscular Volume 98.7 fl (80-94); Mean Platelet Volume 11.2 fL (7.4-10.4); Monocytes # 0.9 10^3/uL (0.2-0.9); Monocytes % 6.3 %; Neutrophils # 12.34 10^3/uL (1.8-7.7); Neutrophils % 85.8 %; Nucleated Red Blood Cells % 0 %; Platelet Count 166 10^3/cmm (130-400); Red Blood Count 3.74 10^6/uL (4.1-5.3); Red Cell Distribution Width 14.6 % (12.1-15.1); White Blood Count 14.4 10^3/uL (4.0-10.0)
[2022-06-26 19:40] LABS: Albumin Level 2.6 g/dL (3.5-5.2); Alkaline Phosphatase 77 U/L (40-130); Blood Urea Nitrogen 51 mg/dL (6-20); Calcium 8.3 mg/dL (8.5-10.5); Carbon Dioxide 11 mmol/L (22-29); Chloride 127 mmol/L (98-107); Globulin 2.6 g/dL (1.3-4.6); Glomerular Filtration Rate 48.8 mL/min (90-130); Glucose 102 mg/dL (65-115); Magnesium 1.8 mg/dL (1.7-2.3); Osmolality Calculated 318 mOsm/kg (285-295); Phosphorus 2.6 mg/dL (2.5-4.5); Sodium 147 mmol/L (136-145); Total Bilirubin 0.3 mg/dL (0.15-1.2); Total Protein 5.2 g/dL (6.6-8.7)
[2022-06-26 19:48] LABS: Anion Gap 12.9 (5-19); Potassium 3.9 mmol/L (3.5-5.1)
[2022-06-26 19:49] LABS: Alanine Aminotransferase 17 U/L (0-41); Aspartate Amino Transferase 28 U/L (0-40)
[2022-06-26 22:49] LABS: Vancomycin Trough 7.1 ug/mL (10-15)
[2022-06-27] VITALS (13 sets, daily range): BP systolic 99–145; BP diastolic 62–77; PULSE 60–77; RESP 16–22; TEMP 36.2–36.9; O2SAT 93–96
[2022-06-27] MEDS: vancomycin 1,000 MG in sodium chloride 0.9% 250 ML 250 MG IV (00:41)
[2022-06-27] MEDS: piperacillin-tazobactam 3.375 GM in sodium chloride 0.9% (plus) 50 ML IV (04:30)
[2022-06-27] MEDS: morphine 4 mg/mL SDV 1 mL 2 MG IVP ×2 (05:35→21:57)
[2022-06-27] MEDS: dextrose 5% 1,000 ML 100 ML IV (07:05)
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
[2022-06-27] MEDS: chlorhexidine gluconate 4% Btl 118 mL 1 APPLIC TOPICAL (09:36)
[2022-06-27] MEDS: mupirocin oint 22 gm 1 APPLIC NOSTRIL-B (09:37)
[2022-06-27] MEDS: sennosides-docusate Tablet 1 TAB PO (09:37)
--- NOTE | 2022-06-27 11:41 | PM.PN ---
Subjective Subjective: Patient refused all lab draws this morning. He is refusing labs because he insists that these can be drawn from his IV line and he does not need to be stopped over and over. Try to explain to him the importance of checking his sodium numbers again while he is on the D5 infusion, however he is refusing at this time. Medications: Reviewed: Yes Vitals/I&O/Wt Last Vital Signs Temp 98.5 F 06/27/22 08:00 Pulse 77 06/27/22 08:13 Resp 16 06/27/22 08:13 BP 99/62 06/27/22 08:00 Pulse Ox 96 06/27/22 08:13 O2 Del Method 06/27/22 08:13 O2 Flow Rate 2 06/24/22 23:00 06/26/22 06/27/22 06/27/22 22:59 06:59 14:59 Intake Total 1143.333 / 2909.643 1640 / 4549.643 480 / 480 Output Total 1350 / 1350 Balance 1143.333 / 2909.643 290 / 3199.643 480 / 480 Physical Exam Narrative: General: No acute distress, AO x3 HEENT: PERRLA, pupils bilaterally equal and reactive, pallors not present Chest: Normal vesicular breath sounds, no added sounds, equal good air entry bilaterally CVS: S1-S2 regular, no murmurs, no tachycardia, no gallops, no rubs Abdomen: Soft, nontender, no organomegaly, bowel sounds present Neuro: No focal deficits, no facial deformity, AO x3, power 5/5 in all limbs Extremities: Multiple scabs in various stages of healing noted all over the body, including plantar aspect. Urinary Catheter Management: Corbett: Cath Placed During This Visit: yes Reason for Continuing Indwelling Catheter: Acute Urinary Retention or Obstruction Urinary Catheter Date of Insertion: 06/22/22 Data : 06/26/22 19:00 06/26/22 19:00 A&P Assessment and plan (1) Acute kidney injury: Severe acute kidney injury on presentation. Likely secondary to your urinary retention This is currently much improved. Status: Acute (2) Altered mental status: Multifactorial. Likely secondary to acute kidney injury, severe acidosis, potentially complicated by alcohol intake chronically. Head CT demonstrated no acute findings. His mentation is back to baseline now Status: Acute (3) Acute urinary retention: Corbett has been placed in his neobladder with resolution of urinary retention. Status: Acute (4) Bladder stone: Possibility of infected bladder stone is noted. Broad-spectrum IV antibiotics initiated. On piperacillin tazobactam and vancomycin. Urine cultures with multiple aubrey, suspect this is related to the ileal neobladder. Transition to oral abx with po augmentin and levaquin in anticipation of discharge over the next 24 hrs. Follow up with urology as outpatient. Maintain corbett catheter at discharge. Status: Acute (5) Metabolic acidemia: Patient presents with severe non-anion gap metabolic acidosis. Bicarbonate drip initially, since discontinued Acidosis appears to be slowly resolving He has developed significant hypernatremia despite half-normal saline. Placed on D5W. Sodium slowly improving. Continue D5W currently. Refused labs today, recheck in the morning. Na at 147 at last check. reduce rate to 50cc /hr as a safer measure as patient refuses lab draws today Status: Acute (6) Pneumonia: Present on admission Treated with Zosyn and vancomycin day 5 abx today MRSA nares positive. Bacterial antigens and urine Legionella antigen negative. Status: Acute (7) Alcoholism: Monitor for withdrawal Status: Acute (8) Sepsis: Present on admission Demonstrated endorgan dysfunction on admission with mental status changes and acute renal failure Received IV antibiotics vancomycin and Zosyn Urine culture reported is greater than 100,000 colonies mixed superficial aubrey. Blood cultures negative to date Echocardiogram demonstrates an EF of 50%, mild global hypokinesis. Mild pulmonary hypertension. Status: Acute Plan Hypokalemia. Supplement IV. History of transitional cell cancer of the bladder, with history of neobladder formation. Appreciate urology recommendations Lung mass. Consider outpatient work-up once stabilized History of hepatitis C. Has significant viral load. Consider treatment as outpatient if he wishes. 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
[2022-06-27 12:02] LABS: Glucose Point of Care 135 mg/dL (70-110)
[2022-06-27 13:58] LABS: Hepatitis A Antibody IgM Non-Reactive (Nonreactive); Hepatitis B Core AB, Total Non-Reactive (Nonreactive); Hepatitis B Surface Antigen Non-Reactive (Nonreactive); Hepatitis C Virus Antibody Reactive (Nonreactive)
[2022-06-27 14:28] LABS: HIV 1 & 2 Antibody Non-Reactive (Non-Reactiv); HIV 1 & 2 Antigen Non-Reactive (Non-Reactiv)
[2022-06-27 14:33] LABS: Hepatitis B Surface AB < 3.5 (11.5-1000)
[2022-06-27] MEDS: amoxicillin-clav 875-125 mg Tablet 1 TAB PO (18:25)
--- NOTE | 2022-06-27 19:57 | PC.NURSE ---
pt with little urinary output at end of shift.catheter irigated with 50 cc sterile water using aseptic technique.50 cc cloudy ,mucousy urine aspirated...then 500 cc clear nathen urine drained freely from catheter.pt tolerated procedure well.
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
[2022-06-27] MEDS: dextrose 5% 1,000 ML 50 ML IV (20:30)
[2022-06-28] VITALS (7 sets, daily range): BP systolic 92–114; BP diastolic 54–73; PULSE 66–82; RESP 18–20; TEMP 36.5–36.9; O2SAT 94–97
[2022-06-28] MEDS: levoFLOXacin 500 mg Tablet PO (05:08)
[2022-06-28 05:09] LABS: Basophils % 0.3 %; Eosinophils # 0.2 10^3/uL (0.0-0.8); Eosinophils % 2.5 %; Hematocrit 30.7 % (42.0-52.0); Hemoglobin 10.1 g/dL (11.7-16.6); Lymphocytes % 11.4 %; Mean Corpuscular HGB Conc 32.9 g/dL (30.0-36.0); Mean Corpuscular Hemoglobin 32.1 pg (28.0-34.0); Mean Corpuscular Volume 97.5 fl (80-94); Mean Platelet Volume 11.7 fL (7.4-10.4); Monocytes # 0.6 10^3/uL (0.2-0.9); Monocytes % 7.2 %; Neutrophils # 6.75 10^3/uL (1.8-7.7); Neutrophils % 77.9 %; Nucleated Red Blood Cells % 0 %; Platelet Count 187 10^3/cmm (130-400); Red Blood Count 3.15 10^6/uL (4.1-5.3); White Blood Count 8.7 10^3/uL (4.0-10.0)
[2022-06-28] MEDS: morphine 4 mg/mL SDV 1 mL 2 MG IVP (05:17)
[2022-06-28 05:24] LABS: Alanine Aminotransferase 20 U/L (0-41); Albumin Level 2.1 g/dL (3.5-5.2); Alkaline Phosphatase 67 U/L (40-130); Aspartate Amino Transferase 24 U/L (0-40); Blood Urea Nitrogen 32 mg/dL (6-20); Calcium 8.3 mg/dL (8.5-10.5); Carbon Dioxide 11 mmol/L (22-29); Chloride 116 mmol/L (98-107); Globulin 3.2 g/dL (1.3-4.6); Glomerular Filtration Rate 52.8 mL/min (90-130); Glucose 93 mg/dL (65-115); Osmolality Calculated 289 mOsm/kg (285-295); Sodium 136 mmol/L (136-145); Total Bilirubin 0.2 mg/dL (0.15-1.2); Total Protein 5.3 g/dL (6.6-8.7)
[2022-06-28 05:41] LABS: Anion Gap 11.7 (5-19)
[2022-06-28 05:43] LABS: Potassium 2.7 mmol/L (3.5-5.1)
[2022-06-28] MEDS: amoxicillin-clav 875-125 mg Tablet 1 TAB PO (10:28)
[2022-06-28] MEDS: potassium chloride oral liq 20 mEq/15 mL UDC 40 MEQ PO (10:28)
[2022-06-28] MEDS: sennosides-docusate Tablet 1 TAB PO (10:29)
[2022-06-28] MEDS: chlorhexidine gluconate 4% Btl 118 mL 1 APPLIC TOPICAL (10:29)
[2022-06-28] MEDS: mupirocin oint 22 gm 1 APPLIC NOSTRIL-B (10:29)
--- NOTE | 2022-06-28 12:59 | P.DS_ITS ---
Discharge Providers Date of Admission: 06/22/22 22:57 Date of Discharge: June 28, 2022 Attending Provider at Admission: Haroon Peterson MD Attending Provider at Discharge: Chema Huerta Diagnoses at Discharge Discharge Diagnosis (1) Alcoholism: Status: Acute (2) Altered mental status: Status: Acute (3) Malnourished: Status: Acute (4) Lung nodule: Status: Acute (5) Metabolic acidemia: Status: Acute Reason for Visit Reason for Visit: AMS/ PINPOINT PUPILS Hospital Course Hospital Course Pleasant 56-year-old gentleman with remote history of bladder cancer, and neobladder creation in 2011, small ventral hernia, hepatitis C, alcohol overuse, smoking, came in with difficulties voiding urine, becoming lethargic, fatigued, on admission confused with anion gap metabolic acidosis, sepsis, community- acquired pneumonia, urinary infection, urinary retention, urinary catheter was placed. Urinary bladder stones with largest measuring 8.[address]. Acute kidney injury, creatinine 6.6. CT chest with also incidentally noted multiple suspicious irregular nodules in the right lower lobe, largest measuring 2.8 cm. Highly suspicious nodules. Was treated in the hospital with antibiotics, Zosyn, vancomycin. Transitioned to Augmentin, Levaquin. Received IV fluids. Was monitored for alcohol withdrawal. Transiently with hypernatremia for which received D5W. Sepsis has resolved. Pneumonia has been improving. Urine culture with superficial aubrey growth. Acute kidney injury has been showing improvement, creatinine decreasing from 6.6 down to 1.4. Mental status has improved, he is awake, alert, conversant, cooperative. No sign of alcohol withdrawal currently. Hypokalemia required replacement multiple times, today down to 2.7, she replaced. He continues with potassium supplementation at discharge. Yap catheter is maintained at discharge until follow-up with urology. Please reassess his recovery from pneumonia, UTI, YAIMA, please reassess electrolytes including sodium, potassium. He is asked to follow-up with infectious disease for treatment of hepatitis C. Please follow-up for further diagnostic assessment of right lower pulmonary suspicious nodules. Please assist in quitting smoking, discuss abstention from alcohol. Physical Exam Const: COMMON NORMALS: patient oriented x3 and alert GENERAL APPEARANCE: cooperative ORIENTATION/CONSCIOUSNESS: Yes awake HENMT: COMMON NORMALS: oropharynx normal Neck/C-Spine: COMMON NORMALS: no JVD Resp: COMMON NORMALS: normal respiratory effort and clear to auscultation bilaterally AUSCULTATION: clear to auscultation bilaterally Cardio: COMMON NORMALS: no JVD, regular rhythm, S1 normal heart sound present, S2 normal heart sound present and No murmurs present (Cardio) RHYTHM: regular rhythm HEART SOUNDS: S1 normal heart sound present and S2 normal heart sound present GI: COMMON NORMALS: Normal to inspection, nondistended, normoactive bowel sounds present, Soft to palpation and non-tender PALPATION: Yes Soft to palpation OTHER: Tiny dimple midway through the lower abdominal scar, minimal eschar, no deep wound, no undermining, no drainage. No surrounding erythema. Extremity: COMMON NORMALS: no joint enlargement and no pedal edema Neuro: COMMON NORMALS: patient oriented x3 and moves all extremities SENSORIUM/ORIENTATION: Yes alert Skin: COMMON NORMALS: no rashes or lesions noted GENERAL SKIN EXAM: no rashes or lesions noted Urinary Catheter Management: Yap: Cath Placed During This Visit: yes Reason for Continuing Indwelling Catheter: Acute Urinary Retention or Obstruction Urinary Catheter Date of Insertion: 06/22/22 Discharge Data Studies Completed and Pending Completed Studies During Hospitalization Category Date Time Status CT chest abdomen pelvis [[place] [id number] Cat Scan 06/22/22 18:10 Completed ] Stat CT head wo con* [id number] Stat Cat Scan 06/22/22 17:57 Completed XR chest 1V portable [id number] Stat Exams 06/22/22 17:57 Completed CV. echo complete* [id number] Routine Ultrasound 06/23/22 17:57 Completed CV. echo complete* [id number] Routine Ultrasound 06/23/22 23:42 Completed Pending at discharge Category Date Time Status Hepatitis C Genotype RNA AM LABS Lab 06/27/22 04:00 Received RPR with Reflex to Titer AM LABS Lab 06/27/22 12:54 Received Sputum Culture Routine Lab 06/23/22 12:42 Uncollected Radiology Impressions Chest X-Ray 06/22/22 17:57 IMPRESSION: Small focus of atelectasis or possible pneumonia in the right mid lung. Head CT 06/22/22 17:57 IMPRESSION: No acute intracranial abnormality. Chest/Abdomen/Pelvis CT 06/22/22 18:10 IMPRESSION: 1. Multiple suspicious irregular nodules in the right lower lobe, the largest measuring 2.8 cm. Highly suspicious nodule(s). Consider non-emergent IMPRESSION: 1. Multiple urinary bladder calculi, the largest measuring 8.6 cm. 2. Distended urinary bladder with no visible wall thickening. This likely represents chronic urinary bladder outlet obstruction. 3. Mild bilateral hydronephrosis is most likely related to the distended urinary bladder. 4. Small bilateral renal calculi. Laboratory Results WBC 8.7 10^3/uL (4.0-10.0) 06/28/22 04:52 RBC 3.15 10^6/uL (4.1-5.3) L 06/28/22 04:52 Hgb 10.1 g/dL (11.7-16.6) L 06/28/22 04:52 Hct 30.7 % (42.0-52.0) L 06/28/22 04:52 MCV 97.5 fl (80-94) H 06/28/22 04:52 MCH 32.1 pg (28.0-34.0) 06/28/22 04:52 MCHC 32.9 g/dL (30.0-36.0) 06/28/22 04:52 RDW 14.0 % (12.1-15.1) 06/28/22 04:52 Plt Count 187 10^3/cmm (130-400) 06/28/22 04:52 MPV 11.7 fL (7.4-10.4) H 06/28/22 04:52 Neut % (Auto) 77.9 % 06/28/22 04:52 Lymph % (Auto) 11.4 % 06/28/22 04:52 [place] % (Auto) 7.2 % 06/28/22 04:52 Eos % (Auto) 2.5 % 06/28/22 04:52 Baso % (Auto) 0.3 % 06/28/22 04:52 Neut # (Auto) 6.75 10^3/uL (1.8-7.7) 06/28/22 04:52 Lymph # (Auto) 1.0 10^3/uL (0.8-4.8) 06/28/22 04:52 [place] # (Auto) 0.6 10^3/uL (0.2-0.9) 06/28/22 04:52 Eos # (Auto) 0.2 10^3/uL (0.0-0.8) 06/28/22 04:52 Baso # (Auto) 0.0 10^3/uL (0.0-0.1) 06/28/22 04:52 Nucleated RBC % (auto) 0 % 06/28/22 04:52 Nucleated RBCs # 0.0 /100WBC 06/28/22 04:52 PT 15.30 SECONDS (12.1-14.9) H 06/22/22 18:45 INR 1.17 (0.8-1.2) 06/22/22 18:45 D-Dimer 1.03 ug/mIFEU (0-0.59) H 06/23/22 05:04 Specimen Type Arterial 06/24/22 03:42 Sample Site Radial, right 06/24/22 03:42 ABG pH 7.26 (7.35-7.45) L 06/24/22 03:42 ABG pCO2 25.7 mmHg (35-45) L 06/24/22 03:42 ABG pO2 85.6 mmHg (80.0-100.0) 06/24/22 03:42 ABG HCO3 11.5 mmol/L (22-26) L 06/24/22 03:42 ABG Base Excess -13.8 mmol/L (-2.0-2.0) L 06/24/22 03:42 Harvinder Test Pos 06/24/22 03:42 Hematocrit 43.4 % (42-52) 06/24/22 03:42 O2 Delivery Device Nc 06/24/22 03:42 O2 Liters/Min 2.0 % 06/24/22 03:42 FiO2 21.0 % 06/22/22 18:52 Digitizer Operator ID Jose Elias 06/24/22 03:42 Sodium 136 mmol/L (136-145) 06/28/22 04:52 Potassium 2.7 mmol/L (3.5-5.1) L* 06/28/22 04:52 Chloride 116 mmol/L (98-107) H 06/28/22 04:52 Carbon Dioxide 11 mmol/L (22-29) L 06/28/22 04:52 Anion Gap 11.7 (5-19) 06/28/22 04:52 BUN 32 mg/dL (6-20) H 06/28/22 04:52 Creatinine 1.4 mg/dL (0.7-1.2) H 06/28/22 04:52 GFR Calculation 52.8 mL/min (90-130) L 06/28/22 04:52 Glucose 93 mg/dL (65-115) 06/28/22 04:52 POC Glucose 135 mg/dL (70-110) H 06/27/22 11:58 Calculated Osmolality 289 mOsm/kg (285-295) 06/28/22 04:52 Lactate 0.5 mmol/L (0.5-2.2) 06/23/22 01:30 Calcium 8.3 mg/dL (8.5-10.5) L 06/28/22 04:52 Phosphorus 2.6 mg/dL (2.5-4.5) 06/26/22 19:00 Magnesium 1.8 mg/dL (1.7-2.3) 06/26/22 19:00 Ferritin 818 ng/mL (30-400) H 06/22/22 21:10 Total Bilirubin 0.2 mg/dL (0.15-1.2) 06/28/22 04:52 AST 24 U/L (0-40) 06/28/22 04:52 ALT 20 U/L (0-41) 06/28/22 04:52 Alkaline Phosphatase 67 U/L (40-130) 06/28/22 04:52 Creatine Kinase 59 U/L (39-308) 06/22/22 18:45 Troponin T Baseline 12 ng/L (0-15) 06/22/22 18:45 Troponin T 120 Minute 12.68 ng/L (0-15) 06/22/22 21:10 Delta Troponin T 0.68 ABS# (0-10) 06/22/22 21:10 Troponin T Hi Sens 6Hr 14.68 ng/L (0-15) 06/23/22 01:30 Troponin T Hi Sens 6Hr Delta 2.68 ng/L (0-12) 06/23/22 01:30 C-Reactive Protein 3.6 mg/L (0.0-4.9) 06/23/22 01:30 NT-Pro-B Natriuret Pep 399 pg/mL (0-125) H 06/22/22 21:10 Total Protein 5.3 g/dL (6.6-8.7) L 06/28/22 04:52 Albumin 2.1 g/dL (3.5-5.2) L 06/28/22 04:52 Globulin 3.2 g/dL (1.3-4.6) 06/28/22 04:52 Lipase 185 U/L (13-60) H 06/22/22 18:45 Vitamin B12 656 pg/mL (232-1245) 06/22/22 21:10 Folate 6.4 ng/mL (4.5-32.2) 06/22/22 21:10 Procalcitonin 0.25 ng/mL (0-0.5) 06/22/22 21:10 TSH 4.09 uIU/mL (0.27-4.20) 06/22/22 18:45 Urine Color Yellow (Yellow) 06/22/22 21:53 Urine Appearance Clear (CLEAR) 06/22/22 21:53 Urine pH 6.5 (5-7) 06/22/22 21:53 Ur Specific [place] 1.010 (1.005-1.030) 06/22/22 21:53 Urine Protein 2+ (Negative) H 06/22/22 21:53 Urine Glucose (UA) Norm (Normal) 06/22/22 21:53 Urine Ketones Negative (Negative) 06/22/22 21:53 Urine Blood 3+ (Negative) H 06/22/22 21:53 Urine Nitrate Negative (Negative) 06/22/22 21:53 Urine Bilirubin Neg (Negative) 06/22/22 21:53 Urine Urobilinogen Norm mg/dL (Negative) 06/22/22 21:53 Ur Leukocyte Esterase 2+ (Negative) H 06/22/22 21:53 Urine RBC 25-40 /hpf (0-2) H 06/22/22 21:53 Urine WBC 40-55 /hpf (0-5) H 06/22/22 21:53 Ur Squamous Epith Cells 0-4 /hpf (0-5) H 06/22/22 21:53 Amorphous Sediment Not Reportable 06/22/22 21:53 Urine Bacteria 2+ /hpf (NONE) H 06/22/22 21:53 Hyaline Casts 0-4 /lpf H 06/22/22 21:53 Ur Oval Fat Bodies 1+ /hpf 06/22/22 21:53 Ur Random Microalbumin 49 ug/dL (0-20) H 06/22/22 21:53 Ur Random Sodium 48 mmol/L 06/22/22 21:53 Ur Random Potassium 40 mmol/L 06/22/22 21:53 Ur Random Chloride 26 mmol/L 06/22/22 21:53 Urine Creatinine 93 mg/dL (39-259) 06/22/22 21:53 Urine Creatinine 93 mg/dL (39-259) 06/22/22 21:53 Microalb/Creat Ratio 527 mg/dL (0-20) H 06/22/22 21:53 Vancomycin Trough 7.1 ug/mL (10-15) L 06/26/22 22:15 Urine Opiates Screen Negative ng/mL (Negative) 06/22/22 21:53 Ur Barbiturates Screen Negative ng/mL (Negative) 06/22/22 21:53 Ur Phencyclidine Scrn Negative ng/mL (Negative) 06/22/22 21:53 Ur Amphetamines Screen Negative ng/mL (Negative) 06/22/22 21:53 U Benzodiazepines Scrn Negative ng/mL (Negative) 06/22/22 21:53 Urine Cocaine Screen Negative ng/mL (Negative) 06/22/22 21:53 U Marijuana (THC) Screen Negative ng/mL (Negative) 06/22/22 21:53 Ethyl Alcohol < 10 mg/dL (0-10) 06/22/22 18:45 Hepatitis A IgM Ab Non-reactive (Nonreactive) 06/27/22 12:54 Hep Bs Antigen Non-reactive (Nonreactive) 06/27/22 12:54 Hep Bs Antibody < 3.5 (11.5-1000) L 06/27/22 12:54 Hep B Core Total Ab Non-reactive (Nonreactive) 06/27/22 12:54 Hepatitis C Antibody Reactive (Nonreactive) H 06/27/22 12:54 HCV RNA Qnt PCR Amp&Det Cancelled 06/27/22 14:33 HCV RNA (PCR) IUs/ml Cancelled 06/27/22 14:33 HCV RNA (PCR) IU log10 Cancelled 06/27/22 14:33 HIV 1&2 Ab & HIV 1 Ag Non-reactive (Non-Reactiv) 06/27/22 12:54 HIV 1&2 Antibody Non-reactive (Non-Reactiv) 06/27/22 12:54 Vitals Last Vital Signs Temp 98.1 F 06/28/22 10:53 Pulse 82 06/28/22 10:53 Resp 20 H 06/28/22 10:53 BP 106/68 06/28/22 10:53 Pulse Ox 94 06/28/22 10:53 O2 Del Method 06/28/22 10:53 O2 Flow Rate 2 06/27/22 08:00 Discharge Plan Discharge Patient Disposition: Home Condition: Stable Prescriptions: New levofloxacin 500 mg Tablet 500 mg PO DAILY@0600 Qty: 9 0RF folic acid 1 mg tablet 1,000 mcg PO DAILY Qty: 90 0RF thiamine HCl (vitamin B1) 100 mg tablet 100 mg PO DAILY Qty: 90 0RF amoxicillin-pot clavulanate 875-125 mg Tablet 1 tab PO BID Qty: 18 0RF multivitamin Tablet 1 tab PO DAILY Qty: 90 0RF potassium chloride 20 mEq tablet extended release 20 meq PO DAILY Qty: 14 0RF No Action No Known Home Medications Discharge Orders: Discharge Order (Routine); Ordered 06/28/22 Ordered By: Chema Huerta Referrals: Denilson Alves MD [Physician] - 1 week (Yap, neobladder stone) Opal Grider MD [Hospitalist] - 2 weeks (Hepatitis C) Gagan Yun MD [Staff Physician] - 07/07/22 8:20 am (Please arrange new patient/hospital follow up appointment.) Discharge Diet: Soft Mechanical Discharge Activity: Increase activity as tolerated Patient Instructions: Yap Catheter Care, How to Stop Smoking (GEN), Acute Kidney Injury (GEN), Cigarette Smoking and Your Health (GEN), Hepatitis C (GEN), Abuse of Alcohol (GEN), Pulmonary Nodules (GEN), Aspiration Precautions (GEN) Activity Restrictions/Additional Instructions: Please continue antibiotics for urinary infection as well as pneumonia, follow- up with urology and infectious disease to consider extension of antibiotic duration. As well as to follow-up regarding urinary catheter and neobladder stone. Continue urinary catheter in place at this time to avoid recurrence of urinary retention and acute kidney injury. Follow-up with your primary doctor for reassessment for resolution of pneumonia. Have your primary doctor follow-up your kidney function for continued improvement of acute kidney injury. Please have your primary doctor recheck your potassium level. Your potassium level was low in the hospital, you are given potassium supplementation. Discuss with your primary doctor whether this supplementation needs to be continued. Please have your primary doctor follow-up your sodium level after increased sodium level in the hospital. Please also follow-up with your primary doctor regarding multiple irregular nodules in the right lower lung, largest 2.8 cm. Highly suspicious nodules. Discuss with your primary doctor further work-up. Please follow-up with infectious disease doctor for treatment of hepatitis C. Please abstain from alcohol. Please stop smoking. Discharge Attestations Time Spent in Discharge Care*: greater than 30 min Quality Metrics Clinical Quality Measures [ No reported AMI, CVA or VTE this stay] Coding Level of Care Code Acute g [facility] note Diagnoses Alcoholism F10.20 Altered mental status R41.82 Malnourished E46 Lung nodule R91.1 Metabolic acidemia E87.2
[2022-06-28 16:33] LABS: RPR w(Moniotor) w/REFL Titer NON-REACTIVE (NON-REACTIVE)
--- NOTE | 2022-06-29 14:48 | PC.NURSE ---
Received a call from patient's mother stating that the Rx sent to [facility] were not there during d/c on 06/28. She also states she would like to speak with Dr. Huerta, I explained he is not on the unit currently. She verbalizes understanding and denies further issues. I obtained her phone number and informed her I would call back after calling and speaking with the pharmacy. I called and spoke with Ayah with [facility] pharmacy and she states that they received all six Rx, however patient had called and requested a transfer to [facility]. She states that she herself transferred the Rx on 06/28, however they have been having difficulty with transfers at this time. I called [facility] and spoke with Pat and she states they have not received Rx from [facility]. I provided verbal orders for Augmentin, Folic Acid, Levofloxacin, Multivitamin, Potassium, and Thiamine as written from Dr. Huerta. I called back to inform patient's mother of this, however had to leave a message. I provided her with my direct line if she had further questions or concerns.
[2022-07-03 20:09] LABS: Hepatitis C Genotype RNA 1a
== END 2022-06-28 13:30 | disposition home or self-care (01) | DRG 871 ==
LOC: ER 21:31 → ICU 22:38 → MEDSURG 06-26 17:17
PROVIDERS: Internal Medicine; Student in an Organized Health Care Education/Training Program; Admitting Provider Internal Medicine; Emergency Provider Emergency Medicine; Visit Provider Internal Medicine
DX: A41.9 Sepsis, unspecified organism (principal); J18.9 Pneumonia, unspecified organism; E87.2 Acidosis; N17.9 Acute kidney failure, unspecified; E46 Unspecified protein-calorie malnutrition; Z68.1 Body mass index [BMI] 19.9 or less, adult; N13.30 Unspecified hydronephrosis; F10.239 Alcohol dependence with withdrawal, unspecified; N39.0 Urinary tract infection, site not specified; E87.0 Hyperosmolality and hypernatremia; R91.8 Other nonspecific abnormal finding of lung field; F17.210 Nicotine dependence, cigarettes, uncomplicated; E83.52 Hypercalcemia; K59.00 Constipation, unspecified; E87.6 Hypokalemia; E86.0 Dehydration; Z85.51 Personal history of malignant neoplasm of bladder; R09.02 Hypoxemia; N21.0 Calculus in bladder; Z96.0 Presence of urogenital implants; R33.8 Other retention of urine; R41.82 Altered mental status, unspecified; I51.89 Other ill-defined heart diseases; B18.2 Chronic viral hepatitis C; R45.1 Restlessness and agitation
CPT/HCPCS: 36415; 36416; 36600; 51702; 70450; 71045; 71250; 74176; 80048; 80053; 80202; 80306; 80307; 81001; 82044; 82436; 82550; 82570; 82607; 82728; 82746; 82803; 82962; 83605; 83690; 83735; 83880; 84100; 84133; 84145; 84300; 84443; 84484; 85025; 85378; 85610; 86140; 86403; 86592; 86705; 86706; 86709; 86803; 87040; 87086; 87340; 87449; 87522; 87641; 87806; 87902; 92507; 92523; 92526; 92610; 93005; 93306; 94664; 96365; 96367; 96372; 99285; J0456; J0696; J1630; J2270; J2543; J3370; J3411; J3480; J7030; J7050; J7799

== ENCOUNTER 2022-07-04 20:18 | Emergency (ER) | payer MEDICAID, SELFPAY ==
[2022-07-04 20:55] VITALS: BP 112/75; PULSE 71; RESP 16; TEMP 36.4; O2SAT 98
[2022-07-04 21:53] VITALS: BP 105/71; PULSE 68; RESP 18; O2SAT 100
[2022-07-04 22:00] LABS: Basophils # 0.1 10^3/uL (0.0-0.1); Basophils % 0.7 %; Eosinophils # 0.1 10^3/uL (0.0-0.8); Eosinophils % 2.1 %; Hematocrit 32.7 % (42.0-52.0); Hemoglobin 10.3 g/dL (11.7-16.6); Lymphocytes % 15.4 %; Mean Corpuscular HGB Conc 31.5 g/dL (30.0-36.0); Mean Corpuscular Hemoglobin 32.3 pg (28.0-34.0); Mean Corpuscular Volume 102.5 fl (80-94); Mean Platelet Volume 10.2 fL (7.4-10.4); Monocytes # 0.7 10^3/uL (0.2-0.9); Monocytes % 10.3 %; Neutrophils # 4.75 10^3/uL (1.8-7.7); Neutrophils % 71.1 %; Nucleated Red Blood Cells % 0 %; Platelet Count 369 10^3/cmm (130-400); Red Blood Count 3.19 10^6/uL (4.1-5.3); Red Cell Distribution Width 14.1 % (12.1-15.1); White Blood Count 6.7 10^3/uL (4.0-10.0)
[2022-07-04 22:18] LABS: Alanine Aminotransferase 19 U/L (0-41); Albumin Level 3.1 g/dL (3.5-5.2); Alkaline Phosphatase 129 U/L (40-130); Anion Gap 13.8 (5-19); Aspartate Amino Transferase 15 U/L (0-40); Blood Urea Nitrogen 31 mg/dL (6-20); Calcium 8.9 mg/dL (8.5-10.5); Carbon Dioxide 13 mmol/L (22-29); Chloride 113 mmol/L (98-107); Creatinine Clr Calc Pharmacy 45.8437; Globulin 3.5 g/dL (1.3-4.6); Glomerular Filtration Rate 57.5 mL/min (90-130); Glucose 96 mg/dL (65-115); Osmolality Calculated 288 mOsm/kg (285-295); Potassium 3.8 mmol/L (3.5-5.1); Sodium 136 mmol/L (136-145); Total Bilirubin 0.2 mg/dL (0.15-1.2); Total Protein 6.6 g/dL (6.6-8.7)
[2022-07-04 22:28] VITALS: BP 97/71; PULSE 73; RESP 18; O2SAT 100
[2022-07-04 22:35] VITALS: RESP 18
[2022-07-04] MEDS: fentaNYL 50 mcg/mL INJ 2mL IVP (22:35)
[2022-07-04] MEDS: ondansetron 2 mg/ML SDV 2 mL 4 MG IVP (22:37)
[2022-07-04 23:03] VITALS: BP 112/70; PULSE 64; RESP 18; O2SAT 98
--- NOTE | 2022-07-04 23:06 | ED_ITS ---
HPI - Male Genitourinary General: Chief complaint: Urogenital-Male Stated complaint: cant void Time Seen by Provider: 07/04/22 21:08 Source: patient History of Present Illness: 56-year-old gentleman recently hospitalized with sepsis and acute kidney injury. He has a history of bladder cancer status post neobladder and ileoconduit diversion surgery. He was discharged home with a Yap catheter, as he had developed urinary outlet obstruction, but says it only appeared to drain for the first couple of days, so he removed it. He says he is only had 10 cc of urine out today. He is having some suprapubic and back pain. He did not have any straight cath catheters at home to perform self- catheterization. He denies fever. Complaint: other Onset (ago): hour(s) Duration: constant Severity: moderate Quality: aching Relieving factors: urination Exacerbating factors: none Associated symptoms: Reports nausea and urinary retention; Deny discharge, dysuria, fevers/chills or vomiting Review of Systems Const: Denies: fever(s) ENMT: Denies: throat pain Card: Denies: chest pain or palpitations GI: Reports: abdominal pain and nausea; Denies: vomiting : Denies: dysuria Musc: Reports: back pain PFS ED PFSH: Medical History Acute urinary retention Bladder cancer 2017 Bladder stone CKD (chronic kidney disease) Falls Macrocytosis Metabolic acidemia No pertinent past medical history SBO (small bowel obstruction) Sepsis Surgical History (Updated 06/23/22 @ 09:55 by Denilson Alves MD) S/P radical cystoprostatectomy Family History Other Cancer Social History Smoking and tobacco status: current every day smoker cigarettes Alcohol intake: current Alcohol type: beer Physical Exam Const: GENERAL APPEARANCE: cooperative and frail appearing HENMT: COMMON NORMALS: normocephalic and atraumatic HEAD & SCALP: normocephalic and atraumatic Eye: COMMON NORMALS: Equal, round and reactive pupils present and EOMs intact bilaterally PUPIL: Yes Equal, round and reactive pupils present Neck/C-Spine: GENERAL: Yes trachea midline Chest: CHEST: Yes Symmetrical chest wall rise Resp: COMMON NORMALS: normal respiratory effort, No use of accessory muscles and clear to auscultation bilaterally AUSCULTATION: clear to auscultation bilaterally Cardio: COMMON NORMALS: regular rate and regular rhythm RATE: regular rate RHYTHM: regular rhythm GI: COMMON NORMALS: Soft to palpation INSPECTION: Yes normal to inspection PALPATION: Yes Soft to palpation and Yes Bladder palpation abnormal Details: distended and tender : BLADDER/KIDNEY EXAM: Yes Bladder palpation abnormal Extremity: COMMON NORMALS: normal to inspection and no pedal edema Neuro: AUDREY COMA SCALE: document GCS findings Audrey coma scale eye opening: Spontaneous Audrey coma scale verbal response: Orientated Audrey coma scale motor response: Obey commands Audrey coma scale total score: 15 Psych: COMMON NORMALS: cooperative Course Vital Signs: Vital signs: Vital Signs Temperature 97.6 F 07/04/22 20:55 Pulse Rate 64 07/04/22 23:03 Respiratory Rate 18 07/04/22 23:03 Blood Pressure 112/70 07/04/22 23:03 Pulse Oximetry 98 07/04/22 23:03 Oxygen Delivery Me thod 07/04/22 20:55 MDM - Male Medical Decision Making Patient feeling better after catheter was placed. There was some difficulty pa ssing the catheter. But we were successful. Clear urine noted. Hemoglobin is 10. White blood cell count 6.7. Bicarbonate level is still low at 13, which is chronically low. Creatinine is 1.3 which appears to be baseline. He will be sent home with Yap in place. Outpatient follow-up. I believe he has this arranged from his prior hospitalization. Urinalysis does show mild urinary tract infection, but he remains on antibiotics for this. Lab Data : 07/04/22 21:50 07/04/22 21:50 Laboratory Results WBC 6.7 10^3/uL (4.0-10.0) 07/04/22 21:50 RBC 3.19 10^6/uL (4.1-5.3) L 07/04/22 21:50 Hgb 10.3 g/dL (11.7-16.6) L 07/04/22 21:50 Hct 32.7 % (42.0-52.0) L 07/04/22 21:50 MCV 102.5 fl (80-94) H 07/04/22 21:50 MCH 32.3 pg (28.0-34.0) 07/04/22 21:50 MCHC 31.5 g/dL (30.0-36.0) 07/04/22 21:50 RDW 14.1 % (12.1-15.1) 07/04/22 21:50 Plt Count 369 10^3/cmm (130-400) 07/04/22 21:50 MPV 10.2 fL (7.4-10.4) 07/04/22 21:50 Neut % (Auto) 71.1 % 07/04/22 21:50 Lymph % (Auto) 15.4 % 07/04/22 21:50 [place] % (Auto) 10.3 % 07/04/22 21:50 Eos % (Auto) 2.1 % 07/04/22 21:50 Baso % (Auto) 0.7 % 07/04/22 21:50 Neut # (Auto) 4.75 10^3/uL (1.8-7.7) 07/04/22 21:50 Lymph # (Auto) 1.0 10^3/uL (0.8-4.8) 07/04/22 21:50 [place] # (Auto) 0.7 10^3/uL (0.2-0.9) 07/04/22 21:50 Eos # (Auto) 0.1 10^3/uL (0.0-0.8) 07/04/22 21:50 Baso # (Auto) 0.1 10^3/uL (0.0-0.1) 07/04/22 21:50 Nucleated RBC % (auto) 0 % 07/04/22 21:50 Nucleated RBCs # 0.0 /100WBC 07/04/22 21:50 Sodium 136 mmol/L (136-145) 07/04/22 21:50 Potassium 3.8 mmol/L (3.5-5.1) 07/04/22 21:50 Chloride 113 mmol/L (98-107) H 07/04/22 21:50 Carbon Dioxide 13 mmol/L (22-29) L 07/04/22 21:50 Anion Gap 13.8 (5-19) 07/04/22 21:50 BUN 31 mg/dL (6-20) H 07/04/22 21:50 Creatinine 1.3 mg/dL (0.7-1.2) H 07/04/22 21:50 GFR Calculation 57.5 mL/min (90-130) L 07/04/22 21:50 Glucose 96 mg/dL (65-115) 07/04/22 21:50 Calculated Osmolality 288 mOsm/kg (285-295) 07/04/22 21:50 Calcium 8.9 mg/dL (8.5-10.5) 07/04/22 21:50 Total Bilirubin 0.2 mg/dL (0.15-1.2) 07/04/22 21:50 AST 15 U/L (0-40) 07/04/22 21:50 ALT 19 U/L (0-41) 07/04/22 21:50 Alkaline Phosphatase 129 U/L (40-130) 07/04/22 21:50 Total Protein 6.6 g/dL (6.6-8.7) 07/04/22 21:50 Albumin 3.1 g/dL (3.5-5.2) L 07/04/22 21:50 Globulin 3.5 g/dL (1.3-4.6) 07/04/22 21:50 Urine Color Yellow (Yellow) 07/04/22 22:59 Urine Appearance Clear (CLEAR) 07/04/22 22:59 Urine pH 7 (5-7) 07/04/22 22:59 Ur Specific [place] 1.005 (1.005-1.030) 07/04/22 22:59 Urine Protein Trace (Negative) 07/04/22 22:59 Urine Glucose (UA) Norm (Normal) 07/04/22 22:59 Urine Ketones Negative (Negative) 07/04/22 22:59 Urine Blood 3+ (Negative) H 07/04/22 22:59 Urine Nitrate Negative (Negative) 07/04/22 22:59 Urine Bilirubin Neg (Negative) 07/04/22 22:59 Urine Urobilinogen Neg mg/dL (Negative) 07/04/22 22:59 Ur Leukocyte Esterase 2+ (Negative) H 07/04/22 22:59 Urine RBC 10-15 /hpf (0-2) H 07/04/22 22:59 Urine WBC 10-15 /hpf (0-5) H 07/04/22 22:59 Ur Squamous Epith Cells 0-4 /hpf (0-5) H 07/04/22 22:59 Amorphous Sediment Not Reportable 07/04/22 22:59 Urine Bacteria Trace /hpf (NONE) 07/04/22 22:59 Discharge Plan Discharge Patient Disposition: Home Clinical Impression: Acute urinary retention Condition: Stable Prescriptions: No Action levofloxacin 500 mg Tablet 500 mg PO DAILY@0600 Qty: 9 0RF amoxicillin-pot clavulanate 875-125 mg Tablet 1 tab PO BID Qty: 18 0RF potassium chloride 20 mEq tablet extended release 20 meq PO DAILY Qty: 14 0RF thiamine HCl (vitamin B1) 100 mg tablet 100 mg PO DAILY Qty: 90 0RF folic acid 1 mg tablet 1,000 mcg PO DAILY Qty: 90 0RF multivitamin Tablet 1 tab PO DAILY Qty: 90 0RF Discharge Orders: Discharge ED (Routine); Ordered 07/05/22 Ordered By: Nelson Bates Discharge Diet: Advance as tolerated Discharge Activity: Increase activity as tolerated Patient Instructions: Urinary Retention in Men (ED), Yap Catheter Placement a nd Care (ED) Activity Restrictions/Additional Instructions: Return for worsening pain, fever, vomiting liquids, any other concerning symptoms. Make sure you stay hydrated. Follow-up as directed from your prior admission. Continue your antibiotics. Coding Level of Care Code ED [place] Automatic for Paige Fwvamsi Exam Comprehensive
[2022-07-04 23:13] LABS: Add Urine Microscopic? YES; Bilirubin Urine Neg (Negative); Blood Urine 3+ (Negative); Glucose Urine UA Norm (Normal); Ketones Urine Negative (Negative); Leukocyte Esterase Urine 2+ (Negative); Nitrate Urine Negative (Negative); Protein Urine Trace (Negative); Specific Gravity, Urine 1.005 (1.005-1.030); Urine Appearance Clear (CLEAR); Urine Color Yellow (Yellow); Urobilinogen Urine Neg (Negative); pH Urine 7 (5-7)
[2022-07-04 23:14] LABS: Add Urine Culture? Yes; Bacteria Urine TRACE /hpf; Squamous Epithelial Cell Urine 0-4 /hpf (0-5)
== END 2022-07-05 00:55 | disposition home or self-care (01) ==
PROVIDERS: Nurse Practitioner Family; Emergency Provider Emergency Medicine
DX: R33.9 Retention of urine, unspecified (principal); Z85.51 Personal history of malignant neoplasm of bladder; F17.210 Nicotine dependence, cigarettes, uncomplicated
CPT/HCPCS: 51702; 51798; 80053; 81001; 85025; 87086; 96374; 96375; 99284; J2405; J3010

== ENCOUNTER → 2022-07-15 15:20 | Outpatient (BNVA) | payer MEDICAID, SELFPAY | PROVIDERS: Visit Provider Student in an Organized Health Care Education/Training Program | DX: B19.20 Unspecified viral hepatitis C without hepatic coma (principal); R91.1 Solitary pulmonary nodule; C67.9 Malignant neoplasm of bladder, unspecified | CPT/HCPCS: 36415; 80053; 87522; 99203 ==

== ENCOUNTER 2022-07-22 00:58 | Emergency (ER) | payer MEDICAID, SELFPAY ==
[2022-07-22 00:58] VITALS: BP 159/93; PULSE 89; RESP 16; TEMP 36.8; O2SAT 98; BMI 22.3
--- NOTE | 2022-07-22 01:02 | ED_ITS ---
HPI - Abdominal Pain General: Chief Complaint: Urogenital-Male Stated Complaint: Blood in Urine Time Seen by Provider: 07/22/22 00:58 Source: patient Mode of arrival: ambulatory Limitations: no limitations History of Present Illness: 56-year-old male has a history of a bladder cancer he has had surgeries he has had indwelling Yap for weeks. He states that he has had decreased output and feels like he is unable to flush it has had some slight blood out he denies any blood clots. He states he has some slight pain denies any fever denies any vomiting denies any worsening improving factors. Associated Symptoms: Denies chills, diarrhea, fever(s), nausea and vomiting Review of Systems Const: Denies: fever(s), chills, body aches or change in appetite Eyes: Denies: blurry vision or eye discomfort ENMT: Denies: throat pain or dental pain Card: Denies: chest pain Resp: Denies: dyspnea GI: Denies: abdominal pain, nausea, vomiting or diarrhea : Reports: difficulty urinating Musc: Denies: neck pain or back pain Skin/Breast: Denies: rash Neuro: Denies: headache(s) Psych: Denies: depression Segundo/Lymph: Denies: easy bruising All/Imm: Denies: urticaria PFSH ED PFSH: Medical History Acute urinary retention Bladder cancer 2017 Bladder stone CKD (chronic kidney disease) Falls Macrocytosis Metabolic acidemia No pertinent past medical history SBO (small bowel obstruction) Sepsis Surgical History S/P radical cystoprostatectomy Family History Mother Lung disease COPD Dementia Cancer Uterine Stroke Father , AT AGE 28 MVA (motor vehicle accident) Grandmother Cancer Paternal--leukemia Maternal--colon Denies family history of Diabetes CAD (coronary artery disease) Clotting disorder Hyperlipidemia Chronic kidney disease (CKD) Anesthesia complication Bleeding disorder Hypertension Social History Smoking and tobacco status: current some day smoker (1-2 per day) cigarettes [ Other cigarette details: current 1/2 PPD. 60PY] Alcohol intake: former Desire information about alcohol rehabilitation?: No Counseling given: No Desire information about substance/drug rehabilitation?: No Counseling given: No Caregiver/support person: No Lives independently: Yes Marital status: Current occupational status: disabled History of recent travel: No Current gender identity: Male Physical Exam Const: COMMON NORMALS: no acute distress, patient oriented x3 and healthy appearing HENMT: COMMON NORMALS: normocephalic and atraumatic HEAD & SCALP: normocep halic and atraumatic Eye: COMMON NORMALS: Equal, round and reactive pupils present and EOMs intact bilaterally PUPIL: Yes Equal, round and reactive pupils present Neck/C-Spine: COMMON NORMALS: full ROM and supple Chest: COMMONS NORMALS: normal inspection of the chest and normal palpation of entire chest wall Resp: COMMON NORMALS: normal respiratory effort, No retractions, No use of accessory muscles and clear to auscultation bilaterally AUSCULTATION: clear to auscultation bilaterally Cardio: COMMON NORMALS: regular rate, regular rhythm and No murmurs present (Cardio) RATE: regular rate RHYTHM: regular rhythm GI: COMMON NORMALS: Normal to inspection, nondistended, normoactive bowel sounds present, Soft to palpation, non-tender and no masses PALPATION: Yes Soft to palpation Extremity: COMMON NORMALS: normal to inspection and full ROM Neuro: COMMON NORMALS: patient oriented x3, moves all extremities and no focal motor deficits Psych: COMMON NORMALS: mental status grossly normal, Normal thought process present and cooperative THOUGHT PROCESS: Normal thought process present Skin: COMMON NORMALS: no rashes or lesions noted and no wounds GENERAL SKIN EXAM: no rashes or lesions noted Course Vital Signs: Vital signs: Vital Signs Temperature 98.2 F 07/22/22 00:58 Pulse Rate 89 07/22/22 00:58 Respiratory Rate 16 07/22/22 00:58 Blood Pressure 159/93 07/22/22 00:58 Pulse Oximetry 98 07/22/22 00:58 Oxygen Delivery Me thod 07/22/22 00:58 MDM - Abdominal Pain Medical Decision Making Patient presents here with dysfunction of his Yap and new Yap placed he has good urine return he stable for discharge we will get him follow-up only. Lab Data : 07/22/22 01:38 07/22/22 01:38 Labs/Radiology: Laboratory Results WBC 5.2 10^3/uL (4.0-10.0) 07/22/22 01:38 RBC 3.23 10^6/uL (4.1-5.3) L 07/22/22 01:38 Hgb 10.5 g/dL (11.7-16.6) L 07/22/22 01:38 Hct 35.0 % (42.0-52.0) L 07/22/22 01:38 MCV 108.4 fl (80-94) H 07/22/22 01:38 MCH 32.5 pg (28.0-34.0) 07/22/22 01:38 MCHC 30.0 g/dL (30.0-36.0) 07/22/22 01:38 RDW 13.2 % (12.1-15.1) 07/22/22 01:38 Plt Count 202 10^3/cmm (130-400) 07/22/22 01:38 MPV 9.9 fL (7.4-10.4) 07/22/22 01:38 Neut % (Auto) 61.5 % 07/22/22 01:38 Lymph % (Auto) 20.5 % 07/22/22 01:38 [place] % (Auto) 13.3 % 07/22/22 01:38 Eos % (Auto) 3.7 % 07/22/22 01:38 Baso % (Auto) 0.8 % 07/22/22 01:38 Neut # (Auto) 3.18 10^3/uL (1.8-7.7) 07/22/22 01:38 Lymph # (Auto) 1.1 10^3/uL (0.8-4.8) 07/22/22 01:38 [place] # (Auto) 0.7 10^3/uL (0.2-0.9) 07/22/22 01:38 Eos # (Auto) 0.2 10^3/uL (0.0-0.8) 07/22/22 01:38 Baso # (Auto) 0.0 10^3/uL (0.0-0.1) 07/22/22 01:38 Nucleated RBC % (auto) 0 % 07/22/22 01:38 Nucleated RBCs # 0.0 /100WBC 07/22/22 01:38 Sodium 137 mmol/L (136-145) 07/22/22 01:38 Potassium 4.6 mmol/L (3.5-5.1) 07/22/22 01:38 Chloride 110 mmol/L (98-107) H 07/22/22 01:38 Carbon Dioxide 18 mmol/L (22-29) L 07/22/22 01:38 Anion Gap 13.6 (5-19) 07/22/22 01:38 BUN 28 mg/dL (6-20) H 07/22/22 01:38 Creatinine 1.3 mg/dL (0.7-1.2) H 07/22/22 01:38 GFR Calculation 57.5 mL/min (90-130) L 07/22/22 01:38 Glucose 96 mg/dL (65-115) 07/22/22 01:38 Calculated Osmolality 289 mOsm/kg (285-295) 07/22/22 01:38 Calcium 9.2 mg/dL (8.5-10.5) 07/22/22 01:38 Total Bilirubin 0.2 mg/dL (0.15-1.2) 07/22/22 01:38 AST 17 U/L (0-40) 07/22/22 01:38 ALT 18 U/L (0-41) 07/22/22 01:38 Alkaline Phosphatase 121 U/L (40-130) 07/22/22 01:38 Total Protein 6.1 g/dL (6.6-8.7) L 07/22/22 01:38 Albumin 3.5 g/dL (3.5-5.2) 07/22/22 01:38 Globulin 2.6 g/dL (1.3-4.6) 07/22/22 01:38 Urine Color Yellow (Yellow) 07/22/22 02:11 Urine Appearance Sl hazy (CLEAR) A 07/22/22 02:11 Urine pH 7 (5-7) 07/22/22 02:11 Ur Specific [place] 1.005 (1.005-1.030) 07/22/22 02:11 Urine Protein Neg (Negative) 07/22/22 02:11 Urine Glucose (UA) Norm (Normal) 07/22/22 02:11 Urine Ketones Negative (Negative) 07/22/22 02:11 Urine Blood 3+ (Negative) H 07/22/22 02:11 Urine Nitrate Negative (Negative) 07/22/22 02:11 Urine Bilirubin Neg (Negative) 07/22/22 02:11 Urine Urobilinogen Norm mg/dL (Negative) 07/22/22 02:11 Ur Leukocyte Esterase 2+ (Negative) H 07/22/22 02:11 Urine RBC Too numerous to cnt /hpf (0-2) H 07/22/22 02:11 Urine WBC Too numerous to cnt /hpf (0-5) H 07/22/22 02:11 Ur Squamous Epith Cells None /hpf (0-5) 07/22/22 02:11 Ur Renal Epithelial Cell 0-2 /hpf 07/22/22 02:11 Amorphous Sediment Not Reportable 07/22/22 02:11 Urine Bacteria 3+ /hpf (NONE) H 07/22/22 02:11 Discharge Plan Discharge Patient Disposition: Home Clinical Impression: Yap catheter problem Condition: Stable Prescriptions: New Cipro 500 mg tablet 500 mg PO BID Qty: 14 0RF No Action sofosbuvir-velpatasvir [Epclusa] 400-100 mg tablet 1 tab PO DAILY 84 Days Qty: 90 0RF amoxicillin-pot clavulanate 875-125 mg Tablet 1 tab PO BID Qty: 18 0RF thiamine HCl (vitamin B1) 100 mg tablet 100 mg PO DAILY Qty: 90 0RF folic acid 1 mg tablet 1,000 mcg PO DAILY Qty: 90 0RF multivitamin Tablet 1 tab PO DAILY Qty: 90 0RF Discharge Orders: Discharge ED (Routine); Ordered 07/22/22 Ordered By: Brittni Capone Referrals: Denilson Alves MD [Physician] - 1-3 days Discharge Diet: Advance as tolerated Discharge Activity: Resume usual activity Patient Instructions: Yap Catheter Placement and Care (ED) Coding Level of Care Code ED Family Law Specialist for Paige Fwd Exam Comprehensive
[2022-07-22] MEDS: ondansetron 2 mg/ML SDV 2 mL 4 MG IVP (01:18)
[2022-07-22] MEDS: HYDROmorphone 1 mg/mL INJ 1 mL 0.5 MG IVP (01:18)
[2022-07-22 01:41] LABS: Basophils % 0.8 %; Eosinophils # 0.2 10^3/uL (0.0-0.8); Eosinophils % 3.7 %; Hemoglobin 10.5 g/dL (11.7-16.6); Lymphocytes # 1.1 10^3/uL (0.8-4.8); Lymphocytes % 20.5 %; Mean Corpuscular Hemoglobin 32.5 pg (28.0-34.0); Mean Corpuscular Volume 108.4 fl (80-94); Mean Platelet Volume 9.9 fL (7.4-10.4); Monocytes # 0.7 10^3/uL (0.2-0.9); Monocytes % 13.3 %; Neutrophils # 3.18 10^3/uL (1.8-7.7); Neutrophils % 61.5 %; Nucleated Red Blood Cells % 0 %; Platelet Count 202 10^3/cmm (130-400); Red Blood Count 3.23 10^6/uL (4.1-5.3); Red Cell Distribution Width 13.2 % (12.1-15.1); White Blood Count 5.2 10^3/uL (4.0-10.0)
[2022-07-22 02:01] LABS: Alanine Aminotransferase 18 U/L (0-41); Albumin Level 3.5 g/dL (3.5-5.2); Alkaline Phosphatase 121 U/L (40-130); Anion Gap 13.6 (5-19); Aspartate Amino Transferase 17 U/L (0-40); Blood Urea Nitrogen 28 mg/dL (6-20); Calcium 9.2 mg/dL (8.5-10.5); Carbon Dioxide 18 mmol/L (22-29); Chloride 110 mmol/L (98-107); Globulin 2.6 g/dL (1.3-4.6); Glomerular Filtration Rate 57.5 mL/min (90-130); Glucose 96 mg/dL (65-115); Osmolality Calculated 289 mOsm/kg (285-295); Potassium 4.6 mmol/L (3.5-5.1); Sodium 137 mmol/L (136-145); Total Bilirubin 0.2 mg/dL (0.15-1.2); Total Protein 6.1 g/dL (6.6-8.7)
[2022-07-22 02:02] LABS: Creatinine Clr Calc Pharmacy 54.3075
[2022-07-22 02:32] LABS: Add Urine Microscopic? YES; Bilirubin Urine Neg (Negative); Blood Urine 3+ (Negative); Glucose Urine UA Norm (Normal); Ketones Urine Negative (Negative); Leukocyte Esterase Urine 2+ (Negative); Nitrate Urine Negative (Negative); Protein Urine Neg (Negative); RBC Urine TOO NUMEROUS TO CNT /hpf (0-2); Specific Gravity, Urine 1.005 (1.005-1.030); Urine Appearance SL Hazy (CLEAR); Urine Color Yellow (Yellow); Urobilinogen Urine Norm (Negative); WBC Urine TOO NUMEROUS TO CNT /hpf (0-5); pH Urine 7 (5-7)
[2022-07-22 02:33] LABS: Add Urine Culture? Yes; Bacteria Urine 3+ /hpf; Renal Epithelial Cells Urine 0-2 /hpf
[2022-07-22 03:12] VITALS: BP 120/70; PULSE 77; RESP 17; O2SAT 94
== END 2022-07-22 03:15 | disposition home or self-care (01) ==
PROVIDERS: Emergency Provider Emergency Medicine
DX: T83.098A Other mechanical complication of other urinary catheter, initial encounter (principal); F17.210 Nicotine dependence, cigarettes, uncomplicated; Z85.51 Personal history of malignant neoplasm of bladder
CPT/HCPCS: 80053; 81001; 85025; 87086; 87186; 96374; 96375; 99284; J1170; J2405

== ENCOUNTER 2022-07-23 16:59 | Emergency (ER) | payer MEDICAID, SELFPAY ==
[2022-07-23 18:35] VITALS: BP 128/83; PULSE 88; RESP 15; TEMP 37; O2SAT 97; BMI 22.3
--- NOTE | 2022-07-23 19:28 | W.ED.GENADLT ---
HPI - General Adult General: Chief complaint: Fever Stated complaint: KIDNEY PAIN Time Seen by Provider: 07/23/22 19:27 History of Present Illness: Patient is a 56-year-old male with a history of bladder cancer, neobladder creation 2011, bladder outlet obstruction w/ residual bladder stone, chronic Yap dependence, hepatitis C and alcohol abuse, recent septic shock and kidney failure on 06/22/2022 and recent ED visit on 07/22 for difficulty voiding presenting to the emergency room for concerns of fever earlier today. Patient tells me that he recently had his Yap changed on 07/22/2022. Since then, patient has been able to void occasionally. Patient tells me that he was told by his doctor to come back to the emergency room should she have any fever at home. He tells me that he had a fever of 103 degrees at home earlier today and was concerned. Patient reports continued difficulty voiding and dysuria. Patient also complains of right-sided flank pain for the last few weeks. Patient denies any cough, runny nose, sore throat, abdominal pain, diarrhea, melena hematochezia. Patient has no other complaints. Onset: earlier today of fever Duration: ongoing Location:home Severity:moderate Associated symptoms: Deny chest pain, dyspnea, nausea, rash, palpitations or vomiting Review of Systems Const: Denies: fever(s) or chills Eyes: Denies: change in vision ENMT: Denies: mouth pain Card: Denies: chest pain or palpitations Resp: Denies: dyspnea or non-productive cough GI: Denies: abdominal pain, nausea, vomiting or diarrhea : Reports: flank pain (+R sided flank pain), dysuria and other (+difficulty voiding) Musc: Denies: extremity pain Skin/Breast: Denies: rash or new lesions Neuro: Denies: weakness in extremities Psych: Reports: other (Normal mood) Segundo/Lymph: Denies: easy bruising PFSH ED PFSH: Medical History Acute urinary retention Bladder cancer 2017 Bladder stone CKD (chronic kidney disease) Falls Macrocytosis Metabolic acidemia No pertinent past medical history SBO (small bowel obstruction) Sepsis Surgical History S/P radical cystoprostatectomy Family History Mother Lung disease COPD Dementia Cancer Uterine Stroke Father , AT AGE 28 MVA (motor vehicle accident) Grandmother Cancer Paternal--leukemia Maternal--colon Denies family history of Diabetes CAD (coronary artery disease) Clotting disorder Hyperlipidemia Chronic kidney disease (CKD) Anesthesia complication Bleeding disorder Hypertension Social History Smoking and tobacco status: current some day smoker (1-2 per day) cigarettes [ Other cigarette details: current 1/2 PPD. 60PY] Alcohol intake: former Desire information about alcohol rehabilitation?: No Counseling given: No Desire information about substance/drug rehabilitation?: No Counseling given: No Caregiver/support person: No Lives independently: Yes Marital status: Current occupational status: disabled History of recent travel: No Current gender identity: Male Physical Exam Const: COMMON NORMALS: alert HENMT: COMMON NORMALS: atraumatic HEAD & SCALP: atraumatic MOUTH: moist mucous membranes not abnormal Eye: COMMON NORMALS: EOMs intact bilaterally and conjunctivae normal CONJUNCTIVA: Yes conjunctivae normal Neck/C-Spine: COMMON NORMALS: full ROM and supple Resp: COMMON NORMALS: normal respiratory effort and clear to auscultation bilaterally AUSCULTATION: clear to auscultation bilaterally Cardio: COMMON NORMALS: regular rate RATE: regular rate GI: COMMON NORMALS: Soft to palpation and non-tender PALPATION: Yes Soft to palpation OTHER: No focal TTP. NO guarding rebound, guarding, rigidity. +Mild R CVA tenderness to percussion. Neg Arias/Neg McBurney's point tenderness, no suprabupic tenderness to palpation. Extremity: COMMON NORMALS: full ROM Neuro: SENSORIUM/ORIENTATION: Yes alert MOTOR EXAM: No Abnormal motor strength present and Other motor observations present (no focal motor deficits) Psych: COMMON NORMALS: speech normal SPEECH: Yes normal speech MOOD & AFFECT: Yes euthymic mood Course Vital Signs: Vital signs: Vital Signs Temperature 98.6 F 07/23/22 18:35 Pulse Rate 88 07/23/22 18:35 Respiratory Rate 15 07/23/22 18:35 Blood Pressure 128/83 07/23/22 18:35 Pulse Oximetry 97 07/23/22 18:35 Oxygen Delivery Me thod 07/23/22 18:35 MDM - General Adult Medical Decision Making Patient is a 56-year-old male with a history of bladder cancer, neobladder creation 2011, bladder outlet obstruction w/ residual bladder stone, chronic Yap dependence, hepatitis C and alcohol abuse, recent septic shock and kidney failure on 06/22/2022 and recent ED visit on 07/22 for difficulty voiding presenting to the emergency room for concerns of fever earlier today. On exam, patient has mild right CVA tenderness palpation. UA showed 10 WBC per high-power field. Creatinine 1.1. Patient has no leukocytosis. Patient is afebrile. This could be early pyelonephritis vs UTI. Patient received Ceftin ciprofloxacin in the ER. I have given patient follow up with our spring encaser to be seen by our outpatient with Dr. Alves for concerns for fever in the setting of chronic bladder outlet obstruction. Patient aware of a call from our spring encaser to schedule for appointment(s) and verbalizes understanding of the importance of following up. Rx Ciprofloaxcin for possible fever and UTI Vs early pyelonephritis, florastor for while on abx. Disposition: Discharge. Patient counseled regarding diagnostic impression, treatment plan. Patient given ED strict return precautions to return for continuation, worsening, or development of new symptoms. Instructed to f/u w/ PCP regarding symptoms today. Patient verbalized understanding. Lab Data : 07/23/22 19:50 07/23/22 19:50 Laboratory Results WBC 4.3 10^3/uL (4.0-10.0) 07/23/22 19:50 RBC 3.84 10^6/uL (4.1-5.3) L 07/23/22 19:50 Hgb 12.5 g/dL (11.7-16.6) 07/23/22 19:50 Hct 40.5 % (42.0-52.0) L 07/23/22 19:50 MCV 105.5 fl (80-94) H 07/23/22 19:50 MCH 32.6 pg (28.0-34.0) 07/23/22 19:50 MCHC 30.9 g/dL (30.0-36.0) 07/23/22 19:50 RDW 13.2 % (12.1-15.1) 07/23/22 19:50 Plt Count 199 10^3/cmm (130-400) 07/23/22 19:50 MPV 10.3 fL (7.4-10.4) 07/23/22 19:50 Neut % (Auto) 66.2 % 07/23/22 19:50 Lymph % (Auto) 12.1 % 07/23/22 19:50 [place] % (Auto) 18.9 % 07/23/22 19:50 Eos % (Auto) 1.2 % 07/23/22 19:50 Baso % (Auto) 0.9 % 07/23/22 19:50 Neut # (Auto) 2.83 10^3/uL (1.8-7.7) 07/23/22 19:50 Lymph # (Auto) 0.5 10^3/uL (0.8-4.8) L 07/23/22 19:50 [place] # (Auto) 0.8 10^3/uL (0.2-0.9) 07/23/22 19:50 Eos # (Auto) 0.1 10^3/uL (0.0-0.8) 07/23/22 19:50 Baso # (Auto) 0.0 10^3/uL (0.0-0.1) 07/23/22 19:50 Nucleated RBC % (auto) 0 % 07/23/22 19:50 Nucleated RBCs # 0.0 /100WBC 07/23/22 19:50 Sodium 138 mmol/L (136-145) 07/23/22 19:50 Potassium 4.1 mmol/L (3.5-5.1) 07/23/22 19:50 Chloride 107 mmol/L (98-107) 07/23/22 19:50 Carbon Dioxide 20 mmol/L (22-29) L 07/23/22 19:50 Anion Gap 15.1 (5-19) 07/23/22 19:50 BUN 20 mg/dL (6-20) 07/23/22 19:50 Creatinine 1.1 mg/dL (0.7-1.2) 07/23/22 19:50 GFR Calculation 69.8 mL/min (90-130) L 07/23/22 19:50 Glucose 127 mg/dL (65-115) H 07/23/22 19:50 Calculated Osmolality 290 mOsm/kg (285-295) 07/23/22 19:50 Calcium 8.8 mg/dL (8.5-10.5) 07/23/22 19:50 Total Bilirubin 0.2 mg/dL (0.15-1.2) 07/23/22 19:50 AST 26 U/L (0-40) 07/23/22 19:50 ALT 26 U/L (0-41) 07/23/22 19:50 Alkaline Phosphatase 141 U/L (40-130) H 07/23/22 19:50 Total Protein 7.5 g/dL (6.6-8.7) 07/23/22 19:50 Albumin 4.0 g/dL (3.5-5.2) 07/23/22 19:50 Globulin 3.5 g/dL (1.3-4.6) 07/23/22 19:50 Lipase 79 U/L (13-60) H 07/23/22 19:50 Urine Color Yellow (Yellow) 07/23/22 19:40 Urine Appearance Turbid (CLEAR) A 07/23/22 19:40 Urine pH 7 (5-7) 07/23/22 19:40 Ur Specific [place] 1.010 (1.005-1.030) 07/23/22 19:40 Urine Protein Neg (Negative) 07/23/22 19:40 Urine Glucose (UA) Norm (Normal) 07/23/22 19:40 Urine Ketones Negative (Negative) 07/23/22 19:40 Urine Blood 2+ (Negative) H 07/23/22 19:40 Urine Nitrate Negative (Negative) 07/23/22 19:40 Urine Bilirubin Neg (Negative) 07/23/22 19:40 Urine Urobilinogen Neg mg/dL (Negative) 07/23/22 19:40 Ur Leukocyte Esterase 2+ (Negative) H 07/23/22 19:40 Urine RBC 5-10 /hpf (0-2) H 07/23/22 19:40 Urine WBC 10-15 /hpf (0-5) H 07/23/22 19:40 Ur Squamous Epith Cells 0-4 /hpf (0-5) H 07/23/22 19:40 Amorphous Sediment Not Reportable 07/23/22 19:40 Urine Bacteria Trace /hpf (NONE) 07/23/22 19:40 Discharge Plan Discharge Patient Disposition: Home Clinical Impression: UTI (urinary tract infection) Condition: Stable Prescriptions: New ciprofloxacin HCl 500 mg tablet 500 mg PO BID 10 Days Qty: 20 0RF Daily Probiotic (S. boulardii) 250 mg capsule 250 mg PO BID 10 Days Qty: 20 0RF No Action sofosbuvir-velpatasvir [Epclusa] 400-100 mg tablet 1 tab PO DAILY 84 Days Qty: 90 0RF amoxicillin-pot clavulanate 875-125 mg Tablet 1 tab PO BID Qty: 18 0RF thiamine HCl (vitamin B1) 100 mg tablet 100 mg PO DAILY Qty: 90 0RF folic acid 1 mg tablet 1,000 mcg PO DAILY Qty: 90 0RF multivitamin Tablet 1 tab PO DAILY Qty: 90 0RF Cipro 500 mg tablet 500 mg PO BID Qty: 14 0RF Discharge Orders: Discharge ED (Routine); Ordered 07/23/22 Ordered By: Griselda Gonzalez Discharge Diet: Advance as tolerated Discharge Activity: Increase activity as tolerated Patient Instructions: Dysuria (ED) Activity Restrictions/Additional Instructions: Please take your antibiotics as instructed. Watch out for signs of skin changes/redness, mouth redness or swelling, nausea/vomiting, diarrhea, blood in the urine or any new or concering complaints. Please come back if you have any worsening abdominal pain, fever or chills, nausea or vomiting, diarrhea, blood in the stool, inability hold down liquid or solids, or any new concerning complaints. Coding Level of Care Code ED Inbound Customer Service Representative for Paige Heard Exam Comprehensive
[2022-07-23 19:57] LABS: Basophils % 0.9 %; Eosinophils # 0.1 10^3/uL (0.0-0.8); Eosinophils % 1.2 %; Hematocrit 40.5 % (42.0-52.0); Hemoglobin 12.5 g/dL (11.7-16.6); Lymphocytes # 0.5 10^3/uL (0.8-4.8); Lymphocytes % 12.1 %; Mean Corpuscular HGB Conc 30.9 g/dL (30.0-36.0); Mean Corpuscular Hemoglobin 32.6 pg (28.0-34.0); Mean Corpuscular Volume 105.5 fl (80-94); Mean Platelet Volume 10.3 fL (7.4-10.4); Monocytes # 0.8 10^3/uL (0.2-0.9); Monocytes % 18.9 %; Neutrophils # 2.83 10^3/uL (1.8-7.7); Neutrophils % 66.2 %; Nucleated Red Blood Cells % 0 %; Platelet Count 199 10^3/cmm (130-400); Red Blood Count 3.84 10^6/uL (4.1-5.3); Red Cell Distribution Width 13.2 % (12.1-15.1); White Blood Count 4.3 10^3/uL (4.0-10.0)
[2022-07-23 19:59] LABS: Add Urine Microscopic? YES; Bilirubin Urine Neg (Negative); Blood Urine 2+ (Negative); Glucose Urine UA Norm (Normal); Ketones Urine Negative (Negative); Leukocyte Esterase Urine 2+ (Negative); Nitrate Urine Negative (Negative); Protein Urine Neg (Negative); Urine Appearance Turbid (CLEAR); Urine Color Yellow (Yellow); Urobilinogen Urine Neg (Negative); pH Urine 7 (5-7)
[2022-07-23 20:00] LABS: Add Urine Culture? Yes; Bacteria Urine TRACE /hpf; Squamous Epithelial Cell Urine 0-4 /hpf (0-5)
[2022-07-23 20:23] LABS: Alanine Aminotransferase 26 U/L (0-41); Alkaline Phosphatase 141 U/L (40-130); Anion Gap 15.1 (5-19); Aspartate Amino Transferase 26 U/L (0-40); Blood Urea Nitrogen 20 mg/dL (6-20); Calcium 8.8 mg/dL (8.5-10.5); Carbon Dioxide 20 mmol/L (22-29); Chloride 107 mmol/L (98-107); Globulin 3.5 g/dL (1.3-4.6); Glomerular Filtration Rate 69.8 mL/min (90-130); Glucose 127 mg/dL (65-115); Lipase 79 U/L (13-60); Osmolality Calculated 290 mOsm/kg (285-295); Potassium 4.1 mmol/L (3.5-5.1); Sodium 138 mmol/L (136-145); Total Bilirubin 0.2 mg/dL (0.15-1.2); Total Protein 7.5 g/dL (6.6-8.7)
[2022-07-23] MEDS: ciprofloxacin 500 mg Tablet PO (20:54)
== END 2022-07-23 20:59 | disposition home or self-care (01) ==
PROVIDERS: Emergency Provider Emergency Medicine
DX: N39.0 Urinary tract infection, site not specified (principal); F17.210 Nicotine dependence, cigarettes, uncomplicated; Z85.51 Personal history of malignant neoplasm of bladder; N18.9 Chronic kidney disease, unspecified; Z86.19 Personal history of other infectious and parasitic diseases
CPT/HCPCS: 80053; 81001; 83690; 85025; 87077; 87086; 87186; 99283

== ENCOUNTER 2022-10-15 14:14 | Outpatient (CLI) | payer MEDICAID, SELFPAY ==
[2022-10-15 15:15] LABS: Basophils # 0.1 10^3/uL (0.0-0.1); Eosinophils # 0.2 10^3/uL (0.0-0.8); Eosinophils % 2.6 %; Hematocrit 37.3 % (42.0-52.0); Hemoglobin 11.9 g/dL (11.7-16.6); Lymphocytes # 1.5 10^3/uL (0.8-4.8); Lymphocytes % 21.5 %; Mean Corpuscular HGB Conc 31.9 g/dL (30.0-36.0); Mean Corpuscular Hemoglobin 32.1 pg (28.0-34.0); Mean Corpuscular Volume 100.5 fl (80-94); Mean Platelet Volume 10.2 fL (7.4-10.4); Monocytes # 0.6 10^3/uL (0.2-0.9); Monocytes % 9.3 %; Neutrophils # 4.42 10^3/uL (1.8-7.7); Nucleated Red Blood Cells % 0 %; Platelet Count 290 10^3/cmm (130-400); Red Blood Count 3.71 10^6/uL (4.1-5.3); Red Cell Distribution Width 16.2 % (12.1-15.1); White Blood Count 6.8 10^3/uL (4.0-10.0)
[2022-10-15 15:36] LABS: Alanine Aminotransferase 10 U/L (0-41); Alkaline Phosphatase 123 U/L (40-130); Anion Gap 12.5 (5-19); Aspartate Amino Transferase 16 U/L (0-40); Blood Urea Nitrogen 28 mg/dL (6-20); Calcium 9.1 mg/dL (8.5-10.5); Carbon Dioxide 18 mmol/L (22-29); Chloride 111 mmol/L (98-107); Glomerular Filtration Rate 69.5 mL/min (90-130); Glucose 87 mg/dL (65-115); Osmolality Calculated 289 mOsm/kg (285-295); Potassium 4.5 mmol/L (3.5-5.1); Sodium 137 mmol/L (136-145); Total Bilirubin 0.2 mg/dL (0.15-1.2)
[2022-10-17 19:19] LABS: HEP C RNA Viral Load Quant <1.18 NOT DETECTED Log IU/mL (NOT DETECTED); HEP C RNA Viral Load Quant <15 NOT DETECTED IU/mL (NOT DETECTED)
== END 2022-10-15 14:15 | disposition home or self-care (01) ==
LOC: LAB 14:17
PROVIDERS: PCP Family Medicine; Visit Provider Student in an Organized Health Care Education/Training Program
DX: B19.20 Unspecified viral hepatitis C without hepatic coma (principal)
CPT/HCPCS: 36415; 80053; 85025; 87522

== ENCOUNTER 2022-12-04 05:41 | Outpatient (CLI) | payer MEDICAID, SELFPAY ==
--- NOTE | 2022-12-04 | PETR_ITS ---
PROCEDURE INFORMATION: Exam: PET/CT Skull Base to Mid-thigh Exam date and time: 12/04/2022 10:26 AM Age: 57 years old Clinical indication: Abnormal findings; Multiple suspicious irregular nodules in the right lower lobe, the. Largest measuring 2.8 cm. Highly suspicious nodule(s). ; Additional info: Lung mass, 06/22/22 CT chest/abd/pelvis: LABS AND CLINICAL REPORTS: Glucose: 99 mg/dl Treatment strategy for malignancy (PET staging): Initial Staging (PI) TECHNIQUE: Imaging protocol: Following at least four-hour fasting and following the injection of F-18-FDG, low dose CT images were obtained. Then, PET images were obtained. Attenuation corrected images were constructed using the CT scan. Fused images of PET and CT were reviewed. The standardized uptake values (SUV) reported below are maximum values within a region of interest, expressed in gm/ml. Exam includes orbital meatal line to mid-thigh. Radiopharmaceutical: 13.1 mCi F-18 FDG (Fluorodeoxyglucose), IV. Time of imaging post radiopharmaceutical administration: 1 hour Injection site: Right antecubital vein COMPARISON: CT chest abdpel wo 06/22/2022 FINDINGS: Brain: Visualized brain has normal physiologic uptake. Paranasal sinuses: No abnormal uptake. There is mucosal thickening causing about 50% opacification of the left maxillary sinus with no air-fluid level. Pharynx: No abnormal uptake. Larynx: No abnormal uptake. Lungs, pleura and trachea: No abnormal uptake. Right lung opacities present on 06/22/2022 have resolved compatible with pneumonia with the exception of non FDG avid 1.3 x 0.8 cm irregular shaped ground-glass opacity in the right upper lobe in place of previously noted 1.9 x 1.5 cm consolidation. No suspicious lung nodules or masses. Stable severe centrilobular and paraseptal emphysema in bilateral lung apices, and mild centrilobular emphysema in the upper lobes. No pleural effusion. Heart: Normal physiologic uptake. There is no cardiomegaly. Mild coronary artery calcification is visualized. There is no pericardial effusion. Mediastinal space: No abnormal uptake. Liver: No abnormal uptake. Gallbladder and bile ducts: No abnormal uptake. No calcified gallstones. Pancreas: No abnormal uptake. Spleen: No abnormal uptake. No splenomegaly. Adrenal glands: No abnormal uptake. No nodules. Kidneys and ureters: Normal physiologic uptake. Stable mild dilatation of bilateral extrarenal pelvis. Stable small nonobstructing stones in the lower olive of each kidney. Stomach and bowel: There is diffuse intense uptake up to 12.1 SUV in the proximal and mid gastric body predominantly along the greater curvature where the gastric wall appears thickened up to 12 mm. No abnormal uptake in the bowel. Intraperitoneal and retroperitoneal spaces: No abnormal uptake. No ascites. Bladder: Decreased activity within severely distended bladder indicating urinary retention, likely chronic finding given similar appearance on the prior exam on 06/22/2022. Stable bladder stones including the largest 8.6 x 6.7 cm stone. Reproductive: No abnormal uptake. Status post prostatectomy. Vasculature: No abnormal uptake. No aortic aneurysm. Lymph nodes: No abnormal uptake. No lymphadenopathy in the head, neck, chest, abdomen, pelvis, and extremities. There are surgical clips along bilateral pelvic sidewall suggestive lymphadenectomy. Bones/joints: No abnormal uptake in the visualized axial and appendicular skeleton. Soft tissues: No abnormal uptake in the visualized head, neck, chest, abdomen, pelvis, and extremities. PET/PET [facility] INITIAL [id number] IMPRESSION: No abnormal radiotracer uptake in the lungs. Right lung opacities documented on 06/22/2022 have resolved compatible with pneumonia. Intense uptake of 12.1 SUV in the stomach is indeterminate, for endoscopic correlation to exclude malignancy. No perigastric lymphadenopathy, no ascites, no FDG avid hepatic lesions or other concerning findings. Chronic benign findings (large stones within severely distended bladder, small nonobstructive bilateral renal stones prior prostatectomy and bilateral pelvic lymphadenectomy).
== END 2022-12-04 05:42 | disposition home or self-care (01) ==
LOC: RAD 12-06 05:42
PROVIDERS: PCP Family Medicine; Visit Provider Internal Medicine Pulmonary Disease
DX: R91.8 Other nonspecific abnormal finding of lung field (principal)
CPT/HCPCS: 78815; A9552